=== PATIENT | female | born 1945 | race Caucasian/White ===

== ENCOUNTER 2018-09-02 17:26 | Inpatient (IN) | payer OTHER, MEDICARE ==
--- NOTE | 2018-09-02 17:35 | PDOC ---
Rapid Medical Evaluation Chief Complaint: Abnormal Lab Results (Outside) Time Seen by Provider: 09/02/18 17:30 Medical Evaluation: Allergies Allergy/AdvReac Type Severity Reaction Status Date / Time Penicillins Allergy Rash Verified 09/02/18 17:30 09/02/18 17:32 I have performed a brief in-person evaluation of this patient. The patient presents with a chief complaint of: advised by PCP Dr. Sood to come to ED due to elevated creatinine levels in office. Patient report not feeling well but denies any symptoms Pertinent physical exam findings: A&Ox 3 in NAD I have ordered the following: CBC, CMP The patient will proceed to the ED for further evaluation. Discharge Disposition - Diagnosis Abnormal laboratory test result - Discharge Dispostion Condition at time of disposition: Stable - Referrals - Patient Instructions - Post Discharge Activity
--- NOTE | 2018-09-02 18:10 | PDOC ---
History of Present Illness - General Chief Complaint: Abnormal Lab Results (Outside) Stated Complaint: LABS RESULT Time Seen by Provider: 09/02/18 17:30 - History of Present Illness Initial Comments: 73yo F with PMH of HTN, DVT, Afib on eliquis sent by her primary care physician for elevated creatinine (Cr=2). Patient states she was not feeling well this morning and decided to see her doctor. She takes HCTZ. Patient does not have acute complaints and cannot verbalize how she she feels unwell. She may feel weak. Also reporting dysuria. Endorses a normal appetite. No fevers, chills, chest pain, or shortness of breath. PCP: Dr. Sood Past History - Past Medical History Allergies/Adverse Reactions: Allergies Allergy/AdvReac Type Severity Reaction Status Date / Time Penicillins Allergy Rash Verified 09/02/18 17:30 Home Medications: Ambulatory Orders Hydrochlorothiazide [Hydrodiuril] 25 mg PO DAILY 06/30/11 Metoprolol Succinate [Toprol XL -] 50 mg PO BID 07/07/11 Acetaminophen [Tylenol .Regular Strength -] 325 mg PO Q4H PRN #0 tablet Atorvastatin Ca [Lipitor] 10 mg PO HS tablet 08/25/14 Digoxin [Lanoxin -] 0.125 mg PO DAILY tablet 08/25/14 Quinapril HCl [Accupril -] 20 mg PO BID tablet 08/25/14 Apixaban [Eliquis] 5 mg PO BID 01/23/17 Amlodipine Besylate [Norvasc -] 5 mg PO HS 09/02/18 Potassium Chloride [K-Dur -] 20 meq PO BID 09/02/18 Sertraline HCl [Zoloft -] 150 mg PO DAILY 09/02/18 Anemia: No Asthma: No Cancer: Yes Cardiac Disorders: Yes (MURMUR, ATRIAL FIBRILLATION) 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) COPD: No CHF: No Dementia: No Diabetes: No GI Disorders: No Disorders: No HTN: Yes Hypercholesterolemia: Yes Liver Disease: No Seizures: No Thyroid Disease: No - Surgical History Abdominal Surgery: Yes (hernia) Appendectomy: No Cardiac Surgery: No Cholecystectomy: No Lung Surgery: No Neurologic Surgery: No Orthopedic Surgery: No - Suicide/Smoking/Psychosocial Hx Smoking Status: No Smoking History: Never smoked Number of Cigarettes Smoked Daily: 0 Hx Alcohol Use: No Drug/Substance Use Hx: No Substance Use Type: None Review of Systems - Review of Systems Comments:: Constitutional: no fever, no chills HEENT: no throat pain, no dysphagia Cardiovascular: no chest pain, no palpitations Respiratory: no cough, no shortness of breath Gastrointestinal: no abdominal pain, no nausea Genitourinary: no hematuria, no frequency Musculoskeletal: no myalgia, no arthralgia Skin: no rash, no itching Neurologic: no headache, no dizziness *Physical Exam - Vital Signs Last Vital Signs Temp Pulse Resp BP Pulse Ox 98.3 F 71 18 98/48 L 98 09/02/18 17:37 09/02/18 17:37 09/02/18 17:37 09/02/18 17:37 09/02/18 17:37 - Physical Exam Comments: General: Awake, alert, and fully oriented, in no acute distress Head: No signs of trauma Eyes: EOMI, sclera anicteric ENT: Moist mucus membranes Neck: Normal ROM, supple Lungs: Lungs clear, Normal breath sounds Cardio: Regular rhythm, S1 and S2 present Abdomen: Soft, nontender. No guarding, no rebound, no masses. No CVA tenderness. Extremities: Normal range of motion, Distal pulses present SKIN: Warm, Dry, normal turgor Neurologic: Cranial nerves II through XII grossly intact. Normal speech ED Treatment Course - LABORATORY CBC & Chemistry Diagram: 09/02/18 18:00 09/02/18 17:35 Medical Decision Making - Medical Decision Making 73yo F with PMH of HTN, DVT, Afib on eliquis sent by her primary care physician for elevated creatinine (Cr=2). Patient takes HCTZ Labs, EKG, CXR Dr Cardenas discussed case with Dr. Sood who accepted patient for admission for DIANE Baseline Cr is 0.8 09/02/18 19:20 EKG: rate 85, QTc 542, Afib with PVCs, RBBB 09/02/18 21:04 UA indicates UTI with 3+LE, 703 WBC, 95 bacteria Levaquin given CBC WBC 8.6 K/mm3 (4.0-10.0) 09/02/18 18:00 RBC 4.07 M/mm3 (3.60-5.2) 09/02/18 18:00 Hgb 11.7 GM/dL (10.7-15.3) 09/02/18 18:00 Hct 35.4 % (32.4-45.2) 09/02/18 18:00 MCV 86.9 fl (80-96) 09/02/18 18:00 MCH 28.6 pg (25.7-33.7) 09/02/18 18:00 MCHC 32.9 g/dl (32.0-36.0) 09/02/18 18:00 RDW 14.0 % (11.6-15.6) 09/02/18 18:00 Plt Count 212 K/MM3 (134-434) 09/02/18 18:00 MPV 7.8 fl (7.5-11.1) 09/02/18 18:00 Absolute Neuts (auto) 6.5 K/mm3 (1.5-8.0) 09/02/18 18:00 Neutrophils % 75.0 % (42.8-82.8) 09/02/18 18:00 Lymphocytes % 15.3 % (8-40) D 09/02/18 18:00 Monocytes % 6.7 % (3.8-10.2) 09/02/18 18:00 Eosinophils % 2.0 % (0-4.5) 09/02/18 18:00 Basophils % 1.0 % (0-2.0) 09/02/18 18:00 Nucleated RBC % 0 % (0-0) 09/02/18 18:00 No anemia or leukocytosis CMP Sodium 138 mmol/L (136-145) 09/02/18 17:35 Potassium 4.6 mmol/L (3.5-5.1) 09/02/18 17:35 Chloride 104 mmol/L (98-107) 09/02/18 17:35 Carbon Dioxide 26 mmol/L (21-32) 09/02/18 17:35 Anion Gap 8 MMOL/L (8-16) 09/02/18 17:35 BUN 38 mg/dL (7-18) H 09/02/18 17:35 Creatinine 1.6 mg/dL (0.55-1.3) H 09/02/18 17:35 Est GFR (CKD-EPI)AfAm 36.16 09/02/18 17:35 Est GFR (CKD-EPI)NonAf 31.20 09/02/18 17:35 Random Glucose 102 mg/dL (74-106) 09/02/18 17:35 Calcium 8.9 mg/dL (8.5-10.1) 09/02/18 17:35 Total Bilirubin 0.7 mg/dL (0.2-1) 09/02/18 17:35 AST 14 U/L (15-37) L 09/02/18 17:35 ALT 11 U/L (13-61) L 09/02/18 17:35 Alkaline Phosphatase 133 U/L (45-117) H 09/02/18 17:35 Total Protein 7.6 g/dl (6.4-8.2) 09/02/18 17:35 Albumin 3.0 g/dl (3.4-5.0) L 09/02/18 17:35 Cr elevated 1.6 CXR without acute pathology, my impression Pending renal US report *DC/Admit/Observation/Transfer Diagnosis at time of Disposition: Abnormal laboratory test result, DIANE (acute kidney injury) - Discharge Dispostion Condition at time of disposition: Guarded Decision to Admit order: Yes - Referrals - Patient Instructions - Post Discharge Activity
[2018-09-02] MEDS ORDERED: SODIUM CHLORIDE 1,000 ML IV STA (18:36)
[2018-09-02 18:54] LABS: HEMATOCRIT 35.4 % (32.4-45.2); HEMOGLOBIN 11.7 GM/dL (10.7-15.3); LYMPH % 15.3 % (8-40); MCH 28.6 pg (25.7-33.7); MCHC 32.9 g/dl (32.0-36.0); MEAN CELL VOLUME 86.9 fl (80-96); MEAN PLT VOLUME 7.8 fl (7.5-11.1); MONO % 6.7 % (3.8-10.2); PLATELET COUNT 212 K/MM3 (134-434); RBC 4.07 M/mm3 (3.60-5.2); WHITE BLOOD COUNT 8.6 K/mm3 (4.0-10.0)
--- NOTE | 2018-09-02 19:18 | PDOC ---
Attending Attestation - Resident Resident Name: Keisha Weiss - ED Attending Attestation I have performed the following: I have examined & evaluated the patient, The case was reviewed & discussed with the resident, I agree w/resident's findings & plan, Exceptions are as noted - HPI HPI: 09/02/18 19:10 73yo female sent from Dr. Sood office for eval of abnl labs performed as an outpt. Pt states she takes quinipril and hctz as part of her BP management and outpt labs show elevated cr. Pt baseline is 1, today 1.9. Pt states lightheaded when she stands for a brief moment. Pt denies cp/sob. No abd pain. No n/v/d. Pt c/o dysuria for the last few days. No hematuria. - Physicial Exam PE: 09/02/18 19:15 Gen: aaox3, nad heart: +s1s2 reg lungs: cta b/l abd: soft, nt/nd +bs, no suprapubic ttp ext: no c/c/e neuro: no focal neuro findings, aaox3 - Medical Decision Making 09/02/18 19:18 a/p: 73yo female sent by Dr. Sood for eval of melina -pt on hctz and quinipril - poss dehyration/med reaction -will repeat labs, renal ultrasound -pt also with dysuria - will send ua/ucx -pt arrives with low bp, will start ivf hydraiton, suspect bp low from meds -will start gentle ivf hydration -will place on Dr. Sood service -pt understands she was sent to the ED for admission 09/02/18 19:[address] Sood who accepts pt to service 09/02/18 20:17 cr 1.6 labs reviewed Heart Score/ECG Review - ECG Intrepretation Comment:: 09/02/18 20:16 afib at 85 with pvc, rbbb, no acute st/t wave findings
[2018-09-02 19:26] LABS: BILIRUBIN,TOTAL 0.7 mg/dL (0.2-1); CALCIUM 8.9 mg/dL (8.5-10.1); CREATININE 1.6 mg/dL (0.55-1.3); POTASSIUM 4.6 mmol/L (3.5-5.1); TOT PROT 7.6 g/dl (6.4-8.2)
--- NOTE | 2018-09-02 19:52 | HP ---
Admitting History and Physical - Primary Care Physician PCP: Yee Sood S - Admission Chief Complaint: ARF History of Present Illness: 73yo F with PMH of HTN, PE/ DVT, Afib on eliquis sent in for elevated creatinine (Cr=2 in office from baseline <1). Patient states she was not feeling well for few days and and she made charissa with me in office for 09/03 but went to have labs prior to visit. She takes HCTZ for a long time and was stable in the past. Patient does not have acute complaints and gives vague complaints about how she feels unwell. She feels weak. Also reporting some dysuria. Endorses a normal appetite. No fevers, chills, chest pain, or shortness of breath. accompanied by in ER History Source: Patient, Family Member Limitations to Obtaining History: No Limitations - Past Medical History Cardiovascular: Yes: AFIB, CHF, HTN - Past Surgical History Past Surgical History: Yes: Hernia Repair - Smoking History Smoking history: Never smoked Aproximately how many cigarettes per day: 0 - Alcohol/Substance Use Hx Alcohol Use: No History of Substance Use: reports: None - Social History Usual Living Arrangement: Yes: With Spouse ADL: Independent History of Recent Travel: No Home Medications - Allergies Allergies/Adverse Reactions: Allergies Allergy/AdvReac Type Severity Reaction Status Date / Time Penicillins Allergy Rash Verified 09/02/18 17:30 - Home Medications Home Medications: Ambulatory Orders Hydrochlorothiazide [Hydrodiuril] 25 mg PO DAILY 06/30/11 Metoprolol Succinate [Toprol XL -] 50 mg PO BID 07/07/11 Acetaminophen [Tylenol .Regular Strength -] 325 mg PO Q4H PRN #0 tablet Atorvastatin Ca [Lipitor] 10 mg PO HS tablet 08/25/14 Digoxin [Lanoxin -] 0.125 mg PO DAILY tablet 08/25/14 Quinapril HCl [Accupril -] 20 mg PO BID tablet 08/25/14 Apixaban [Eliquis] 5 mg PO BID 01/23/17 Amlodipine Besylate [Norvasc -] 5 mg PO HS 09/02/18 Potassium Chloride [K-Dur -] 20 meq PO BID 09/02/18 Sertraline HCl [Zoloft -] 150 mg PO DAILY 09/02/18 Family Disease History - Family Disease History Family History: Unremarkable Review of Systems - Review of Systems Constitutional: reports: Loss of Appetite, Weakness (general). denies: Chills, Fever, Lethargy Eyes: denies: Blurred Vision, Double Vision HENT: denies: Difficult Swallowing, Ear Discharge, Ear Pain Neck: denies: Stiffness, Tenderness Cardiovascular: denies: Chest Pain, Shortness of Breath Respiratory: denies: Cough, SOB Gastrointestinal: denies: Abdominal Pain, Constipation, Dysphagia, Vomiting Genitourinary: reports: Dysuria (frequency), Frequency. denies: Flank Pain, Hematuria Musculoskeletal: denies: Back Pain, Muscle Pain Integumentary: denies: Eczema, Erythema, Rash, Wound Neurological: reports: Unsteady Gait, Weakness (general). denies: Change in LOC , Change in Speech, Confusion, Dizziness, Headache, Seizure, Syncope Endocrine: denies: Unexplained Weight Gain, Unexplained Weight Loss Hematology/Lymphatic: denies: Easily Bruised, Excessive Bleeding Psychiatric: denies: Altered Sleep Pattern, Anxiety, Depression Physical Examination Vital Signs: Vital Signs Temperature 98.3 F 09/02/18 17:37 Pulse Rate 71 09/02/18 17:37 Respiratory Rate 18 09/02/18 17:37 Blood Pressure 98/48 L 09/02/18 17:37 O2 Sat by Pulse Oximetry (%) 98 09/02/18 17:37 Constitutional: Yes: No Distress, Calm Eyes: Yes: Conjunctiva Clear HENT: Yes: Atraumatic Neck: Yes: Supple Cardiovascular: No: Regular Rate and Rhythm Respiratory: Yes: CTA Bilaterally Gastrointestinal: Yes: Soft. No: Tenderness Renal/: No: CVA Tenderness - Left, CVA Tenderness - Right, Hematuria Musculoskeletal: No: Joint Stiffness, Joint Swelling Extremities: No: Cold, Cool, Cyanosis Edema: No Integumentary: Yes: Venous Stasis Changes. No: Rash Neurological: Yes: WNL, Alert, Oriented ...Motor Strength: WNL Psychiatric: Yes: WNL, Alert, Oriented. No: Agitated, Suicidal Ideation Labs: CBC, BMP 09/02/18 18:00 09/02/18 17:35 Imaging - Results Chest X-ray: Report Reviewed Other: Report Reviewed Assessment/Plan 73yo F with PMH of HTN, PE DVT, Afib on eliquis sent in for elevated creatinine (Cr=2 in office from baseline <1). hold ACEI, HCT; decrease eliquis dose adjusted to renbal fct for now renal pelvic US; UA UCx cardiology and renal eval; f/u labs falls pfx d.w pt do not get OOB alone d/w pt and staff d/w pt's at bedside
[2018-09-02] MEDS ORDERED: ACETAMINOPHEN 325 MG TABLET (FP) PO PRN (19:55)
[2018-09-02 20:11] LABS: EPI CELLS 1.9 /HPF (0-5/HPF); HYALINE CASTS 4 /lpf (0-8); URINE APPEARANCE CLOUDY; URINE BILIRUBIN NEGATIVE (NEGATIVE); URINE COLOR YELLOW; URINE GLUCOSE (UA) NEGATIVE (NEGATIVE); URINE KETONE NEGATIVE (NEGATIVE); URINE LEUK ESTERASE 3+ (NEGATIVE); URINE NITRITE NEGATIVE (NEGATIVE); URINE PROTEIN 1+ (NEGATIVE); URINE UROBILINOGEN 0.2 mg/dL (0.2-1.0); URINE WBC 703 /hpf (0-5)
[2018-09-02 20:33] LABS: INR 1.69 (0.83-1.09); PROTHROMBIN TIME (PATIENT) 20.1 SEC (9.7-13.0)
[2018-09-02 20:51] LABS: URINE RBC 53.2 /hpf (0-4); YEAST FEW (NEGATIVE)
[2018-09-02] MEDS ORDERED: amLODIPine BESYLATE 5 MG TABLET (FP) PO SCH (22:00)
[2018-09-02] MEDS ORDERED: APIXABAN 5 MG TABLET PO ONE (22:12)
[2018-09-02] MEDS ORDERED: amLODIPine BESYLATE 5 MG TABLET (FP) ONE (22:13)
[2018-09-02] MEDS ORDERED: ATORVASTATIN CA 10 MG TABLET (FP) ONE (22:13)
[2018-09-02] MEDS: APIXABAN 2.5 MG TABLET PO SCH (22:21)
[2018-09-02] MEDS: ATORVASTATIN CA 10 MG TABLET (FP) PO SCH (22:21)
[2018-09-03 04:55] VITALS: BMI 30.7
[2018-09-03 08:12] LABS: CALCIUM 8.9 mg/dL (8.5-10.1); CREATININE 1.3 mg/dL (0.55-1.3); POTASSIUM 3.4 mmol/L (3.5-5.1)
[2018-09-03] MEDS ORDERED: POTASSIUM CHLORIDE TABS 10 MEQ TABLET.ER (FP) PO ONE (08:44)
--- NOTE | 2018-09-03 09:14 | CON.CARD ---
Consult Consult Specialty:: Cardiology Referred by:: Yee Sood MD Reason for Consultation:: Afib on eliquis - History of Present Illness Chief Complaint: Weakness History of Present Illness: 73 yo WF h/o permanenet afib on Eliquis, HTN, DVT/pulmonary embolism, mitral valve regurgitation, gastritis s/p ventral hernia repair last seen in office presents with weakness and dysuria, found to have DIANE, chronically on Accuretic, renal US shows no hydronephrosis. Patient denies chest pain, dyspnea , palpitations, near or true syncope, orthopnea, PND or LE edema. - History Source History Provided By: Patient Limitations to Obtaining History: No Limitations - Past Medical History Cardio/Vascular: Yes: AFIB, CHF, HTN - Past Surgical History Past Surgical History: Yes: Hernia Repair - Alcohol/Substance Use Hx Alcohol Use: No History of Substance Use: reports: None - Smoking History Smoking history: Never smoked Aproximately how many cigarettes per day: 0 - Social History ADL: Independent History of Recent Travel: No Home Medications - Allergies Allergies/Adverse Reactions: Allergies Allergy/AdvReac Type Severity Reaction Status Date / Time Penicillins Allergy Rash Verified 09/02/18 17:30 - Home Medications Home Medications: Ambulatory Orders Hydrochlorothiazide [Hydrodiuril] 25 mg PO DAILY 06/30/11 Metoprolol Succinate [Toprol XL -] 50 mg PO BID 07/07/11 Acetaminophen [Tylenol .Regular Strength -] 325 mg PO Q4H PRN #0 tablet Atorvastatin Ca [Lipitor] 10 mg PO HS tablet 08/25/14 Digoxin [Lanoxin -] 0.125 mg PO DAILY tablet 08/25/14 Quinapril HCl [Accupril -] 20 mg PO BID tablet 08/25/14 Apixaban [Eliquis] 5 mg PO BID 01/23/17 Amlodipine Besylate [Norvasc -] 5 mg PO HS 09/02/18 Potassium Chloride [K-Dur -] 20 meq PO BID 09/02/18 Sertraline HCl [Zoloft -] 150 mg PO DAILY 09/02/18 Review of Systems - Review of Systems Constitutional: reports: Lethargy, Weakness Vital Signs: Vital Signs Temperature 98.2 F 09/03/18 08:42 Pulse Rate 76 09/03/18 08:42 Respiratory Rate 20 09/03/18 08:42 Blood Pressure 101/53 L 09/03/18 08:42 O2 Sat by Pulse Oximetry (%) 96 09/03/18 05:58 Constitutional: Yes: No Distress, Calm, Thin Neck: Yes: Supple Respiratory: Yes: Regular, CTA Bilaterally Gastrointestinal: Yes: Normal Bowel Sounds, Soft Cardiovascular: Yes: Pulse Irregular JVD: No Carotid Bruit: No Heart Sounds: Yes: S1, S2 Murmur: Yes: Systolic Murmur, Grade 1 Edema: No - Other Data Labs, Other Data: CBC, BMP 09/02/18 18:00 09/03/18 06:35 INR, PTT INR 1.69 (0.83-1.09) H 09/02/18 20:04 Afib @ 85 RBBB similar to previous 06/29/2018 Ejection Fraction %: LVEF > or = 40 % Imaging - Results Chest X-ray: Report Reviewed (NAD) Ultrasound: Report Reviewed (Renal US: No hydro) Problem List - Problems (1) Atrial fibrillation Code(s): I48.91 - UNSPECIFIED ATRIAL FIBRILLATION Qualifiers: Atrial fibrillation type: permanent Qualified Code(s): I48.2 - Chronic atrial fibrillation (2) Right bundle branch block (RBBB) Code(s): I45.10 - UNSPECIFIED RIGHT BUNDLE-BRANCH BLOCK (3) Hypertensive cardiomyopathy Code(s): I11.9 - HYPERTENSIVE HEART DISEASE WITHOUT HEART FAILURE; I43 - CARDIOMYOPATHY IN DISEASES CLASSIFIED ELSEWHERE Qualifiers: Heart failure presence: without heart failure Qualified Code(s): I11.9 - Hypertensive heart disease without heart failure; I43 - Cardiomyopathy in diseases classified elsewhere (4) Hyperlipidemia Code(s): E78.5 - HYPERLIPIDEMIA, UNSPECIFIED Qualifiers: Hyperlipidemia type: pure hypercholesterolemia Qualified Code(s): E78.00 - Pure hypercholesterolemia, unspecified; E78.0 - Pure hypercholesterolemia (5) Chronic anticoagulation Code(s): Z79.01 - ALF (CURRENT) USE OF ANTICOAGULANTS (6) DIANE (acute kidney injury) Code(s): N17.9 - ACUTE KIDNEY FAILURE, UNSPECIFIED Assessment/Plan October 22, 2017 Echo: Normal LV size with mild LVH, normal LV fxn, severe LAE, normal atrial sizes, normal RV size with mild decreased RV fxn, mild MR, TR RVSP 40 mmHg, tr SD 1. DIANE likely pre-renal resolving 2. Permanent afib on Eliquis [id number] 3. Hyperlipidemia 4. HTN 5. H/o DVT/PE 6. Suspected UTI P:1. Hold HCTZ, IVF with following renal recovery, replete K 2. Empiric abx per C&S, f/u UA UCx 3. Continue Accupril 20 qd with caution, Lipitor 10 qd, increase Eliquis 5 bid, Lopressor 50 bid 4. Thank you for consultative opportunity
[2018-09-03] MEDS: APIXABAN 2.5 MG TABLET PO SCH (09:20)
[2018-09-03] MEDS: metoPROLOL SUCCINATE 25 MG TAB.SR.24H (FP) PO SCH ×2 (09:20→21:35)
[2018-09-03] MEDS: SERTRALINE HCL 50 MG TABLET (FP) PO SCH (09:20)
[2018-09-03] MEDS: POTASSIUM CHLORIDE TABS 20 MEQ TABLET.ER (FP) PO SCH (09:20)
[2018-09-03] MEDS ORDERED: POTASSIUM CHLORIDE 10 MEQ in SODIUM CHLORIDE 1,000 ML IVPB SCH ×2 (10:00→13:27)
[2018-09-03 10:03] LABS: EPI CELLS 0.5 /HPF (0-5/HPF); HYALINE CASTS 1 /lpf (0-8); URINE APPEARANCE CLOUDY; URINE BACTERIA 2.2 /hpf (NEGATIVE); URINE BILIRUBIN NEGATIVE (NEGATIVE); URINE COLOR YELLOW; URINE GLUCOSE (UA) NEGATIVE (NEGATIVE); URINE KETONE NEGATIVE (NEGATIVE); URINE LEUK ESTERASE 3+ (NEGATIVE); URINE NITRITE NEGATIVE (NEGATIVE); URINE PROTEIN TRACE (NEGATIVE); URINE UROBILINOGEN 0.2 mg/dL (0.2-1.0); URINE WBC 329 /hpf (0-5)
[2018-09-03] MEDS: QUINAPRIL HCL 20 MG TABLET (FP) PO SCH (10:59)
[2018-09-03 11:38] LABS: URINE RBC 82.1 /hpf (0-4); YEAST NOT PRESENT (NEGATIVE)
--- NOTE | 2018-09-03 11:47 | PN ---
Progress Note, Physician Chief Complaint: no new c/o; received low dose IVF; off HCT off ACEI creat better UA+ UCx pending - Current Medication List Current Medications: Active Medications Acetaminophen (Tylenol -) 325 mg PO Q4H PRN PRN Reason: PAIN Apixaban (Eliquis -) 5 mg PO BID [facility] Atorvastatin Calcium (Lipitor -) 10 mg PO HS [facility] Last Admin: 09/02/18 22:21 Dose: 10 mg Potassium Chloride 10 meq/ (Sodium Chloride) 1,005 mls @ 42 mls/hr IVPB Q24H [facility] Last Admin: 09/03/18 10:59 Dose: 42 mls/hr Metoprolol Succinate (Toprol Xl -) 25 mg PO BID [facility] Last Admin: 09/03/18 09:20 Dose: 25 mg Potassium Chloride (K-Dur -) 20 meq PO DAILY [facility] Last Admin: 09/03/18 09:20 Dose: 20 meq Quinapril HCl (Accupril -) 20 mg PO DAILY [facility] Last Admin: 09/03/18 10:59 Dose: 20 mg Sertraline HCl (Zoloft -) 150 mg PO DAILY [facility] Last Admin: 09/03/18 09:20 Dose: 150 mg - Objective Vital Signs: Vital Signs Temperature 98.2 F 09/03/18 08:42 Pulse Rate 76 09/03/18 08:42 Respiratory Rate 20 09/03/18 08:42 Blood Pressure 101/53 L 09/03/18 08:42 O2 Sat by Pulse Oximetry (%) 95 09/03/18 09:00 Constitutional: Yes: No Distress, Calm Eyes: Yes: Conjunctiva Clear HENT: Yes: Atraumatic Neck: Yes: Supple Cardiovascular: No: Regular Rate and Rhythm Respiratory: Yes: CTA Bilaterally Gastrointestinal: Yes: Soft. No: Tenderness Genitourinary: No: CVA Tenderness - Left, CVA Tenderness - Right Musculoskeletal: No: Joint Stiffness, Joint Swelling Extremities: No: Cold, Cool, Cyanosis Edema: No Integumentary: Yes: Venous Stasis Changes. No: Rash Neurological: Yes: WNL, Alert, Oriented ...Motor Strength: WNL Psychiatric: Yes: WNL, Alert, Oriented. No: Agitated, Suicidal Ideation Labs: CBC, BMP 09/02/18 18:00 09/03/18 06:35 INR, PTT INR 1.69 (0.83-1.09) H 09/02/18 20:04 - ....Imaging Other: Report Reviewed Assessment/Plan 73yo F with PMH of HTN, PE DVT, Afib on eliquis admitted with ARF and UTI hold ACEI, HCT; adjust eliquis dose to rebal fct renal pelvic US; UA UCx pending; po levaquin per renal fct cardiology and renal f/u; f/u labs falls pfx d.w pt do not get OOB alone d/w pt and staff will call pt's
--- NOTE | 2018-09-03 13:12 | CONSULT ---
Consult - text type - Consultation Consultation Note: Renal Consult for DIANE This is a 73 year old woman with hx of Hypertension, DVT, Afib on A/C who was sent to the ED by PMD with outpatient labs that showed worsening renal function. Pt seen and examined at the bedside. No acute complaints. Getting IVF. Denies any pain, sob, cp, abd pain, fever, chills. Making urine. Reports she had some dysuria previously. Has been on HCTZ for a long time. No flank pain , skin rash, NSAID use or contrast exposure. No leg swelling but had been swollen in the past. PMhx: as above Allergies: NKDA Family Hx: NC Social hx: No T/A/D ROS: as per HPI, all othe pertinent ros negative Home Medications Medication Instructions Recorded Hydrochlorothiazide [Hydrodiuril] 25 mg PO DAILY 06/30/11 Metoprolol Succinate [Toprol XL -] 50 mg PO BID 07/07/11 Acetaminophen [Tylenol .Regular 325 mg PO Q4H PRN #0 tablet 08/25/14 Strength -] Atorvastatin Ca [Lipitor] 10 mg PO HS tablet 08/25/14 Digoxin [Lanoxin -] 0.125 mg PO DAILY tablet 08/25/14 Quinapril HCl [Accupril -] 20 mg PO BID tablet 08/25/14 Apixaban [Eliquis] 5 mg PO BID 01/23/17 Amlodipine Besylate [Norvasc -] 5 mg PO HS 09/02/18 Potassium Chloride [K-Dur -] 20 meq PO BID 09/02/18 Sertraline HCl [Zoloft -] 150 mg PO DAILY 09/02/18 Vital Signs Temperature 98.2 F 09/03/18 08:42 Pulse Rate 76 09/03/18 08:42 Respiratory Rate 20 09/03/18 08:42 Blood Pressure 101/53 L 09/03/18 08:42 O2 Sat by Pulse Oximetry (%) 95 09/03/18 09:00 Intake & Output 08/31/18 09/01/18 09/02/18 09/03/18 23:59 23:59 23:59 23:59 Intake Total 100 Balance 100 Weight 63.503 kg 71.486 kg NAD awake and alert neck supple, no JVD irregular, no M/R CTA, no rales or wheeze soft NT/ND no LE edema, clubbing or edema no focal neurologic deficits CBC, BMP 09/02/18 18:00 09/03/18 06:35 Laboratory Tests 08/27/18 09/02/18 09/03/18 17:28 17:35 06:35 Creatinine 1.9 H 1.6 H 1.3 Laboratory Tests 09/03/18 07:05 Ur Specific [place] 1.009 L Urine Protein Trace Urine Blood 3+ H Ur Leukocyte Esterase 3+ H Urine WBC (Auto) 329 Urine RBC (Auto) 82.1 Urine Bacteria (Auto) 2.2 Renal US - 9.9/9.8, no hydronephross, stones or cysts. Fibroid uterus. CXR- no infiltrate or effusion Current Medications Acetaminophen (Tylenol -) 325 mg PO Q4H PRN PRN Reason: PAIN Apixaban (Eliquis -) 5 mg PO BID [facility] Atorvastatin Calcium (Lipitor -) 10 mg PO HS [facility] Last Admin: 09/02/18 22:21 Dose: 10 mg Potassium Chloride 10 meq/ (Sodium Chloride) 1,005 mls @ 42 mls/hr IVPB Q24H [facility] Last Admin: 09/03/18 10:59 Dose: 42 mls/hr Levofloxacin (Levaquin -) 250 mg PO DAILY [facility] Last Admin: 09/03/18 13:01 Dose: 250 mg Metoprolol Succinate (Toprol Xl -) 25 mg PO BID [facility] Last Admin: 09/03/18 09:20 Dose: 25 mg Potassium Chloride (K-Dur -) 20 meq PO DAILY [facility] Last Admin: 09/03/18 09:20 Dose: 20 meq Quinapril HCl (Accupril -) 20 mg PO DAILY [facility] Last Admin: 09/03/18 10:59 Dose: 20 mg Sertraline HCl (Zoloft -) 150 mg PO DAILY [facility] Last Admin: 09/03/18 09:20 Dose: 150 mg 73 year old woman with hx of Hypertension, DVT, Afib on A/C who was sent to the ED by PMD with outpatient labs that showed worsening renal function. #DIANE now resolving likely due to volume depletion in setting of diuretic #Hematuria #Hypokalemia #Hypertension #Suspected cystitis Renal function improving with IVF. Renal US w/o any structural abnormalities. UA showed hematuria and pyuria likely related to cystitis. Would continue moderate IVF for now holding HCTZ while being hydrated but can resume as outpatient if renal function returns to baseline and remains stable. Continue ACEi Supplement KCL f/u urine cultures and adjust Abx as needed Thank you
[2018-09-03] MEDS ORDERED: SODIUM CHLORIDE 0.9%/KCL 20 MEQ/1,000 ML INFUS.BAG IV SCH (13:30)
--- NOTE | 2018-09-03 15:17 | EKG ---
Test Reason : Blood Pressure : / mmHG Vent. Rate : 085 BPM Atrial Rate : 107 BPM P-R Int : 000 ms QRS Dur : 162 ms QT Int : 456 ms P-R-T Axes : 000 061 -44 degrees QTc Int : 542 ms ATRIAL FIBRILLATION WITH PREMATURE VENTRICULAR OR ABERRANTLY CONDUCTED COMPLEXES RIGHT BUNDLE BRANCH BLOCK T WAVE ABNORMALITY, CONSIDER INFERIOR ISCHEMIA ABNORMAL ECG WHEN COMPARED WITH ECG OF 23-AUG-2014 05:40, QT HAS LENGTHENED Confirmed by MARCUS PEREZ MD ([id number]) on 09/03/2018 3:17:11 PM Referred By: Confirmed By:MARCUS PEREZ MD
[2018-09-03] MEDS: ATORVASTATIN CA 10 MG TABLET (FP) PO SCH (21:35)
[2018-09-03] MEDS: APIXABAN 5 MG TABLET PO SCH (21:35)
[2018-09-04 07:42] LABS: BASO % 0.8 % (0-2.0); EOS % 2.3 % (0-4.5); HEMATOCRIT 31.7 % (32.4-45.2); HEMOGLOBIN 10.6 GM/dL (10.7-15.3); LYMPH % 20.4 % (8-40); MCH 28.6 pg (25.7-33.7); MCHC 33.4 g/dl (32.0-36.0); MEAN CELL VOLUME 85.8 fl (80-96); MEAN PLT VOLUME 7.8 fl (7.5-11.1); MONO % 6.7 % (3.8-10.2); NEUT % 69.8 % (42.8-82.8); PLATELET COUNT 175 K/MM3 (134-434); RBC 3.69 M/mm3 (3.60-5.2); RDW 13.8 % (11.6-15.6); WHITE BLOOD COUNT 5.8 K/mm3 (4.0-10.0)
[2018-09-04 08:27] LABS: ALBUMIN 2.6 g/dl (3.4-5.0); BILIRUBIN,TOTAL 0.9 mg/dL (0.2-1); CALCIUM 8.8 mg/dL (8.5-10.1); CREATININE 1.2 mg/dL (0.55-1.3); MAGNESIUM 1.9 mg/dL (1.8-2.4); PHOSPHOROUS 2.8 mg/dL (2.5-4.9); POTASSIUM 3.4 mmol/L (3.5-5.1); TOT PROT 6.4 g/dl (6.4-8.2)
[2018-09-04] MEDS: POTASSIUM CHLORIDE TABS 20 MEQ TABLET.ER (FP) PO SCH ×2 (10:11→22:14)
[2018-09-04] MEDS: SERTRALINE HCL 50 MG TABLET (FP) PO SCH (10:11)
[2018-09-04] MEDS: metoPROLOL SUCCINATE 25 MG TAB.SR.24H (FP) PO SCH ×2 (10:12→22:14)
[2018-09-04] MEDS: APIXABAN 5 MG TABLET PO SCH ×2 (10:12→22:15)
[2018-09-04] MEDS: QUINAPRIL HCL 20 MG TABLET (FP) PO SCH (10:14)
--- NOTE | 2018-09-04 10:38 | PN ---
Progress Note (short form) - Note Progress Note: RENAL coverage for Dr Baker Pt is awake and alert denies complaints Last Vital Signs Temp Pulse Resp BP Pulse Ox 98.1 F 97 H 20 127/87 96 09/04/18 06:00 09/04/18 06:00 09/03/18 23:45 09/04/18 06:00 09/03/18 22:00 Lungs clear cvs s1s2 rr abd soft ext venous insufficiency changes neuro a+o CBC, BMP 09/04/18 06:05 09/04/18 06:05 Current Medications Generic Name Dose Route Start Last Admin Trade Name Freq PRN Reason Stop Dose Admin Acetaminophen 325 mg 09/02/18 19:55 Tylenol - PO Q4H PRN PAIN Apixaban 5 mg 09/03/18 11:25 09/04/18 10:12 Eliquis - PO 5 mg BID CHANG Administration Atorvastatin Calcium 10 mg 09/02/18 22:00 09/03/18 21:35 Lipitor - PO 10 mg HS CHANG Administration Potassium Chloride/Sodium Chloride 20 meq in 1,000 mls @ 41.667 mls/hr 13:30 09/03/18 13:52 Ns+20 Meq Kcl - IV 09/04/18 13:29 41.667 mls/hr ASDIR CHANG Administration Levofloxacin 250 mg 09/03/18 12:00 09/04/18 10:12 Levaquin - PO 250 mg DAILY CHANG Administration Metoprolol Succinate 25 mg 09/03/18 10:00 09/04/18 10:12 Toprol Xl - PO 25 mg BID CHANG Administration Potassium Chloride 20 meq 09/03/18 10:00 09/04/18 10:11 K-Dur - PO 20 meq DAILY CHANG Administration Quinapril HCl 20 mg 09/03/18 10:00 09/04/18 10:14 Accupril - PO 20 mg DAILY CHANG Administration Sertraline HCl 150 mg 09/03/18 10:00 09/04/18 10:11 Zoloft - PO 150 mg DAILY CHANG Administration IMPRESSION 73 year old woman with hx of Hypertension, DVT, Afib on A/C who was sent to the ED by PMD with outpatient labs that showed worsening renal function. #DIANE now resolving likely due to volume depletion in setting of diuretic #Hematuria likely from cystitis #Hypokalemia #Hypertension #anemia PLAN Renal function improving with IVF. Renal US w/o any structural abnormalities. UA showed hematuria and pyuria likely related to cystitis. Would continue IVF for now holding HCTZ while being hydrated Continue ACEi would repeat ua after treatment of UTI and if still hematuric would ask urology to evaluate Supplement KCL f/u urine cultures and adjust Abx as needed anemia work up MV
--- NOTE | 2018-09-04 11:06 | PN ---
Progress Note, Physician Chief Complaint: in bed no new c/o; Staph aureus in UCx; will ask ID input - Current Medication List Current Medications: Active Medications Acetaminophen (Tylenol -) 325 mg PO Q4H PRN PRN Reason: PAIN Apixaban (Eliquis -) 5 mg PO BID [facility] Last Admin: 09/04/18 10:12 Dose: 5 mg Atorvastatin Calcium (Lipitor -) 10 mg PO HS [facility] Last Admin: 09/03/18 21:35 Dose: 10 mg Potassium Chloride/Sodium Chloride (Ns+20 Meq Kcl -) 20 meq in 1,000 mls @ 41.667 mls/hr IV ASDIR [facility] Stop: 09/04/18 13:29 Last Admin: 09/03/18 13:52 Dose: 41.667 mls/hr Levofloxacin (Levaquin -) 250 mg PO DAILY [facility] Last Admin: 09/04/18 10:12 Dose: 250 mg Metoprolol Succinate (Toprol Xl -) 25 mg PO BID [facility] Last Admin: 09/04/18 10:12 Dose: 25 mg Potassium Chloride (K-Dur -) 20 meq PO DAILY [facility] Last Admin: 09/04/18 10:11 Dose: 20 meq Quinapril HCl (Accupril -) 20 mg PO DAILY [facility] Last Admin: 09/04/18 10:14 Dose: 20 mg Sertraline HCl (Zoloft -) 150 mg PO DAILY [facility] Last Admin: 09/04/18 10:11 Dose: 150 mg - Objective Vital Signs: Vital Signs Temperature 98.1 F 09/04/18 06:00 Pulse Rate 97 H 09/04/18 06:00 Respiratory Rate 20 09/03/18 23:45 Blood Pressure 127/87 09/04/18 06:00 O2 Sat by Pulse Oximetry (%) 96 09/03/18 22:00 Constitutional: Yes: No Distress, Calm Eyes: Yes: Conjunctiva Clear HENT: Yes: Atraumatic Neck: Yes: Supple Cardiovascular: No: Regular Rate and Rhythm Respiratory: Yes: CTA Bilaterally Gastrointestinal: Yes: Soft. No: Tenderness Genitourinary: No: CVA Tenderness - Left, CVA Tenderness - Right Musculoskeletal: No: Joint Stiffness, Joint Swelling Extremities: No: Cold, Cool, Cyanosis Edema: No Integumentary: No: Rash, Venous Stasis Changes Neurological: Yes: WNL, Alert, Oriented ...Motor Strength: WNL Psychiatric: Yes: WNL, Alert, Oriented. No: Agitated, Suicidal Ideation Labs: CBC, BMP 09/04/18 06:05 09/04/18 06:05 INR, PTT INR 1.69 (0.83-1.09) H 09/02/18 20:04 - ....Imaging Other: Report Reviewed Assessment/Plan 73yo F with PMH of HTN, PE DVT, Afib on eliquis admitted with ARF and UTI / staph aureus on UCx eliquis dose back to 5 mg po bid; renal fct improved; renal pelvic US negative Iv vanco per ID; check blood cx cardiology and renal f/u; f/u labs falls pfx d.w pt do not get OOB alone d/w pt and staff d/w pt's
--- NOTE | 2018-09-04 13:47 | CON.ID ---
Consult Consult Specialty:: infectious disease Referred by:: dr campbell Reason for Consultation:: UTI - History of Present Illness Chief Complaint: admitted for elevated creatinine History of Present Illness: 73 yo female lives at home with her , ambulates with cane or wheelchair due to bilaerl leg pain/calluses admitted for elevated cretinine also notes some dysuria no fevers no suprapubic pain no back pain erratic eater at best per noted to have pyuria and started on levaquin now urine culture with coag positive staph! started on levaquin in Ed, now day #3 - History Source History Provided By: Patient, Family Member Limitations to Obtaining History: Poor Historian - Past Medical History Cardio/Vascular: Yes: AFIB, CHF, HTN Pulmonary: Yes: Pulmonary Embolus (and DVT in the past) - Past Surgical History Past Surgical History: Yes: Hernia Repair - Alcohol/Substance Use Hx Alcohol Use: No History of Substance Use: reports: None - Smoking History Smoking history: Never smoked Aproximately how many cigarettes per day: 0 - Social History Usual Living Arrangement: With Spouse ADL: Independent Place of : [facility] History of Recent Travel: No Home Medications - Allergies Allergies/Adverse Reactions: Allergies Allergy/AdvReac Type Severity Reaction Status Date / Time Penicillins Allergy Rash Verified 09/02/18 17:30 - Home Medications Home Medications: Ambulatory Orders Hydrochlorothiazide [Hydrodiuril] 25 mg PO DAILY 06/30/11 Metoprolol Succinate [Toprol XL -] 50 mg PO BID 07/07/11 Acetaminophen [Tylenol .Regular Strength -] 325 mg PO Q4H PRN #0 tablet Atorvastatin Ca [Lipitor] 10 mg PO HS tablet 08/25/14 Digoxin [Lanoxin -] 0.125 mg PO DAILY tablet 08/25/14 Quinapril HCl [Accupril -] 20 mg PO BID tablet 08/25/14 Apixaban [Eliquis] 5 mg PO BID 01/23/17 Amlodipine Besylate [Norvasc -] 5 mg PO HS 09/02/18 Potassium Chloride [K-Dur -] 20 meq PO BID 09/02/18 Sertraline HCl [Zoloft -] 150 mg PO DAILY 09/02/18 Family Disease History - Family Disease History Family History: Denies Review of Systems - Review of Systems Constitutional: denies: Chills, Fever Eyes: reports: No Symptoms HENT: reports: No Symptoms Neck: reports: No Symptoms Cardiovascular: reports: No Symptoms Respiratory: reports: No Symptoms Gastrointestinal: reports: No Symptoms Genitourinary: reports: Burning. denies: Flank Pain Physical Exam Vital Signs: Vital Signs Temperature 98.9 F 09/04/18 10:00 Pulse Rate 96 H 09/04/18 10:00 Respiratory Rate 20 09/04/18 10:00 Blood Pressure 114/79 09/04/18 10:00 O2 Sat by Pulse Oximetry (%) 97 09/04/18 09:00 Constitutional: Yes: No Distress, Calm Eyes: Yes: Conjunctiva Clear HENT: Yes: Atraumatic, Normocephalic Neck: Yes: Supple Cardiovascular: Yes: Regular Rate and Rhythm Respiratory: Yes: CTA Bilaterally Gastrointestinal: Yes: Normal Bowel Sounds, Soft. No: Tenderness, Epigastrium ...Rectal Exam: Yes: Deferred Renal/: No: Bladder Distention, CVA Tenderness - Left, CVA Tenderness - Right , Ashraf Present Extremities: Yes: WNL, Other (same calluses on her feet, bilateral venous stsis changes) Labs: CBC, BMP 09/04/18 06:05 09/04/18 06:05 Microbiology 09/03/18 07:05 Urine - Urine Clean Catch Urine Culture - Final NO GROWTH OBTAINED 09/02/18 19:53 Urine - Urine Clean Catch Urine Culture - Preliminary Staphylococcus Latex Coag Pos Imaging - Results X-ray: Report Reviewed, Image Reviewed Ultrasound: Report Reviewed Problem List - Problems (1) DIANE (acute kidney injury) Code(s): N17.9 - ACUTE KIDNEY FAILURE, UNSPECIFIED (2) UTI (urinary tract infection) Code(s): N39.0 - URINARY TRACT INFECTION, SITE NOT SPECIFIED (3) Penicillin allergy Code(s): Z88.0 - ALLERGY STATUS TO PENICILLIN Assessment/Plan would get blood cultures vancomycin after blood cultures renal function improving further reccd in am after urine culture result is back
[2018-09-04] MEDS ORDERED: VANCOMYCIN 1 GRAM (PRE-DOCKED) 1,000 MG/250 ML BAG IVPB ONE (13:48)
--- NOTE | 2018-09-04 18:53 | PN ---
Progress Note, Physician History of Present Illness: Weakness and dysuria resolving. DIANE improving - Current Medication List Current Medications: Active Medications Acetaminophen (Tylenol -) 325 mg PO Q4H PRN PRN Reason: PAIN Apixaban (Eliquis -) 5 mg PO BID [facility] Last Admin: 09/04/18 10:12 Dose: 5 mg Atorvastatin Calcium (Lipitor -) 10 mg PO HS [facility] Last Admin: 09/03/18 21:35 Dose: 10 mg Metoprolol Succinate (Toprol Xl -) 25 mg PO BID [facility] Last Admin: 09/04/18 10:12 Dose: 25 mg Potassium Chloride (K-Dur -) 20 meq PO BID [facility] Quinapril HCl (Accupril -) 20 mg PO DAILY [facility] Last Admin: 09/04/18 10:14 Dose: 20 mg Sertraline HCl (Zoloft -) 150 mg PO DAILY [facility] Last Admin: 09/04/18 10:11 Dose: 150 mg - Objective Vital Signs: Vital Signs Temperature 98.4 F 09/04/18 15:26 Pulse Rate 89 09/04/18 15:26 Respiratory Rate 20 09/04/18 15:26 Blood Pressure 112/73 09/04/18 15:26 O2 Sat by Pulse Oximetry (%) 97 09/04/18 09:00 Constitutional: Yes: No Distress, Calm Neck: Yes: Supple Cardiovascular: Yes: Pulse Irregular Respiratory: Yes: Regular, Diminished Gastrointestinal: Yes: Normal Bowel Sounds, Soft Edema: No Labs: CBC, BMP 09/04/18 06:05 09/04/18 06:05 INR, PTT INR 1.69 (0.83-1.09) H 09/02/18 20:04 Problem List - Problems (1) Atrial fibrillation Code(s): I48.91 - UNSPECIFIED ATRIAL FIBRILLATION Qualifiers: Atrial fibrillation type: permanent Qualified Code(s): I48.2 - Chronic atrial fibrillation (2) Right bundle branch block (RBBB) Code(s): I45.10 - UNSPECIFIED RIGHT BUNDLE-BRANCH BLOCK (3) Hypertensive cardiomyopathy Code(s): I11.9 - HYPERTENSIVE HEART DISEASE WITHOUT HEART FAILURE; I43 - CARDIOMYOPATHY IN DISEASES CLASSIFIED ELSEWHERE Qualifiers: Heart failure presence: without heart failure Qualified Code(s): I11.9 - Hypertensive heart disease without heart failure; I43 - Cardiomyopathy in diseases classified elsewhere (4) Hyperlipidemia Code(s): E78.5 - HYPERLIPIDEMIA, UNSPECIFIED Qualifiers: Hyperlipidemia type: pure hypercholesterolemia Qualified Code(s): E78.00 - Pure hypercholesterolemia, unspecified; E78.0 - Pure hypercholesterolemia (5) Chronic anticoagulation Code(s): Z79.01 - HALF-WAY (CURRENT) USE OF ANTICOAGULANTS (6) DIANE (acute kidney injury) Code(s): N17.9 - ACUTE KIDNEY FAILURE, UNSPECIFIED Assessment/Plan October 22, 2017 Echo: Normal LV size with mild LVH, normal LV fxn, severe LAE, normal atrial sizes, normal RV size with mild decreased RV fxn, mild MR, TR RVSP 40 mmHg, tr [place] 1. DIANE likelydue to volume depletion in setting of diuretic resolving 2. Permanent afib on Eliquis [id number] 3. Hyperlipidemia 4. HTN 5. H/o DVT/PE 6. Staph UTI 7. Anemia P:1. Hold HCTZ, IVF with following renal recovery, replete K 2. Empiric abx per C&S, f/u UA UCx 3. Continue Accupril 20 qd, Lipitor 10 qd, Eliquis 5 bid, Lopressor 50 bid
[2018-09-04] MEDS: ATORVASTATIN CA 10 MG TABLET (FP) PO SCH (22:15)
[2018-09-04] MEDS ORDERED: LORazepam 1 MG TABLET PO ONE (23:45)
[2018-09-05 07:16] LABS: BASO % 0.9 % (0-2.0); HEMATOCRIT 33.2 % (32.4-45.2); HEMOGLOBIN 11.3 GM/dL (10.7-15.3); LYMPH % 17.4 % (8-40); MCH 28.8 pg (25.7-33.7); MEAN CELL VOLUME 84.7 fl (80-96); MEAN PLT VOLUME 7.7 fl (7.5-11.1); MONO % 6.7 % (3.8-10.2); PLATELET COUNT 194 K/MM3 (134-434); RBC 3.92 M/mm3 (3.60-5.2); WHITE BLOOD COUNT 6.3 K/mm3 (4.0-10.0)
[2018-09-05 07:49] LABS: ALBUMIN 2.8 g/dl (3.4-5.0); BILIRUBIN,TOTAL 0.8 mg/dL (0.2-1); CREATININE 1.1 mg/dL (0.55-1.3); POTASSIUM 3.2 mmol/L (3.5-5.1); TOT PROT 6.8 g/dl (6.4-8.2)
[2018-09-05] MEDS ORDERED: POTASSIUM CHLORIDE TABS 20 MEQ TABLET.ER (FP) PO ONE (08:47)
--- NOTE | 2018-09-05 08:49 | PN ---
Progress Note, Physician Chief Complaint: in bed sleepy but arousable; was agitated last night and received 1 mg po ativan ; no new c/o consults appreciated and d/w pt and pt's - Current Medication List Current Medications: Active Medications Acetaminophen (Tylenol -) 325 mg PO Q4H PRN PRN Reason: PAIN Apixaban (Eliquis -) 5 mg PO BID [facility] Last Admin: 09/04/18 22:15 Dose: 5 mg Atorvastatin Calcium (Lipitor -) 10 mg PO HS [facility] Last Admin: 09/04/18 22:15 Dose: 10 mg Metoprolol Succinate (Toprol Xl -) 25 mg PO BID [facility] Last Admin: 09/04/18 22:14 Dose: 25 mg Potassium Chloride (K-Dur -) 20 meq PO BID [facility] Last Admin: 09/04/18 22:14 Dose: 20 meq Quinapril HCl (Accupril -) 20 mg PO DAILY [facility] Last Admin: 09/04/18 10:14 Dose: 20 mg Sertraline HCl (Zoloft -) 150 mg PO DAILY [facility] Last Admin: 09/04/18 10:11 Dose: 150 mg - Objective Vital Signs: Vital Signs Temperature 98.0 F 09/05/18 05:00 Pulse Rate 93 H 09/05/18 05:00 Respiratory Rate 20 09/04/18 15:26 Blood Pressure 132/76 09/05/18 05:00 O2 Sat by Pulse Oximetry (%) 97 09/04/18 21:00 Constitutional: Yes: No Distress, Calm Eyes: Yes: Conjunctiva Clear HENT: Yes: Atraumatic Neck: Yes: Supple Cardiovascular: No: Regular Rate and Rhythm Respiratory: Yes: CTA Bilaterally Gastrointestinal: Yes: Soft. No: Tenderness Genitourinary: No: Hematuria Musculoskeletal: No: Joint Stiffness, Joint Swelling Extremities: No: Cold, Cool, Cyanosis Edema: No Integumentary: No: Rash, Venous Stasis Changes Neurological: Yes: WNL, Alert, Oriented ...Motor Strength: WNL Psychiatric: Yes: WNL, Alert, Oriented. No: Agitated, Suicidal Ideation Labs: CBC, BMP 09/05/18 06:30 09/05/18 06:30 INR, PTT INR 1.69 (0.83-1.09) H 09/02/18 20:04 - ....Imaging Other: Report Reviewed Assessment/Plan 73yo F with PMH of HTN, PE DVT, Afib on eliquis admitted with ARF and UTI / staph aureus on UCx renal fct improved; renal pelvic US negative Iv vanco per ID; check blood cx cardiology and renal f/u; f/u labs falls pfx d.w pt do not get OOB alone d/w pt and staff d/w pt's
--- NOTE | 2018-09-05 09:29 | PN ---
Progress Note (short form) - Note Progress Note: RENAL coverage for Dr Baker asleeroseline, arousable denies complaints Last Vital Signs Temp Pulse Resp BP Pulse Ox 98.0 F 93 H 20 132/76 97 09/05/18 05:00 09/05/18 05:00 09/04/18 15:26 09/05/18 05:00 09/04/18 21:00 Lungs clear cvs s1s2 irr abd soft ext venous insufficiency changes neuro a+o CBC, BMP 09/05/18 06:30 09/05/18 06:30 Current Medications Generic Name Dose Route Start Last Admin Trade Name Freq PRN Reason Stop Dose Admin Acetaminophen 325 mg 09/02/18 19:55 Tylenol - PO Q4H PRN PAIN Apixaban 5 mg 09/03/18 11:25 09/04/18 22:15 Eliquis - PO 5 mg BID CHANG Administration Atorvastatin Calcium 10 mg 09/02/18 22:00 09/04/18 22:15 Lipitor - PO 10 mg HS CHANG Administration Metoprolol Succinate 25 mg 09/03/18 10:00 09/04/18 22:14 Toprol Xl - PO 25 mg BID CHANG Administration Potassium Chloride 20 meq 09/04/18 22:00 09/04/18 22:14 K-Dur - PO 20 meq BID CHANG Administration Potassium Chloride 20 meq 09/05/18 08:47 K-Dur - PO 09/05/18 08:48 ONCE ONE Quinapril HCl 20 mg 09/03/18 10:00 09/04/18 10:14 Accupril - PO 20 mg DAILY CHANG Administration Sertraline HCl 150 mg 09/03/18 10:00 09/04/18 10:11 Zoloft - PO 150 mg DAILY CHANG Administration IMPRESSION 73 year old woman with hx of Hypertension, DVT, Afib on A/C who was sent to the ED by PMD with outpatient labs that showed worsening renal function. #DIANE now resolving likely due to volume depletion in setting of diuretic #Hematuria likely from cystitis #Hypokalemia #Hypertension #anemia PLAN would keep off fluids and diuretics for now and keep monitoring hematuria will need to be evaluated, particularly if persistent MV MV
[2018-09-05] MEDS: metoPROLOL SUCCINATE 25 MG TAB.SR.24H (FP) PO SCH ×2 (09:58→21:30)
[2018-09-05] MEDS: SERTRALINE HCL 50 MG TABLET (FP) PO SCH (09:58)
[2018-09-05] MEDS: APIXABAN 5 MG TABLET PO SCH ×2 (09:58→21:31)
[2018-09-05] MEDS: POTASSIUM CHLORIDE TABS 20 MEQ TABLET.ER (FP) PO SCH ×2 (09:58→21:30)
[2018-09-05] MEDS: QUINAPRIL HCL 20 MG TABLET (FP) PO SCH (09:59)
[2018-09-05] MEDS: VANCOMYCIN 1 GRAM (PRE-DOCKED) 1,000 MG/250 ML BAG IVPB SCH (14:00)
--- NOTE | 2018-09-05 15:24 | PN ---
Progress Note, Physician History of Present Illness: Weakness and dysuria resolving. DIANE improving - Current Medication List Current Medications: Active Medications Acetaminophen (Tylenol -) 325 mg PO Q4H PRN PRN Reason: PAIN Apixaban (Eliquis -) 5 mg PO BID [facility] Last Admin: 09/05/18 09:58 Dose: 5 mg Atorvastatin Calcium (Lipitor -) 10 mg PO HS [facility] Last Admin: 09/04/18 22:15 Dose: 10 mg Vancomycin HCl (Vancomycin (Pre-Docked)) 1,000 mg in 250 mls @ 200 mls/hr IVPB Q24H [facility]; Protocol Last Admin: 09/05/18 14:00 Dose: 200 mls/hr Metoprolol Succinate (Toprol Xl -) 25 mg PO BID [facility] Last Admin: 09/05/18 09:58 Dose: 25 mg Potassium Chloride (K-Dur -) 20 meq PO BID [facility] Last Admin: 09/05/18 09:58 Dose: 20 meq Quinapril HCl (Accupril -) 20 mg PO DAILY [facility] Last Admin: 09/05/18 09:59 Dose: 20 mg Sertraline HCl (Zoloft -) 150 mg PO DAILY [facility] Last Admin: 09/05/18 09:58 Dose: 150 mg - Objective Vital Signs: Vital Signs Temperature 97.6 F 09/05/18 14:41 Pulse Rate 84 09/05/18 14:41 Respiratory Rate 20 09/05/18 14:41 Blood Pressure 115/68 09/05/18 14:41 O2 Sat by Pulse Oximetry (%) 95 09/05/18 09:00 Constitutional: Yes: No Distress, Calm Neck: Yes: Supple Cardiovascular: Yes: Pulse Irregular Respiratory: Yes: Regular, Diminished Gastrointestinal: Yes: Normal Bowel Sounds, Soft Edema: No Labs: CBC, BMP 09/05/18 06:30 09/05/18 06:30 INR, PTT INR 1.69 (0.83-1.09) H 09/02/18 20:04 Problem List - Problems (1) Atrial fibrillation Code(s): I48.91 - UNSPECIFIED ATRIAL FIBRILLATION Qualifiers: Atrial fibrillation type: permanent Qualified Code(s): I48.2 - Chronic atrial fibrillation (2) Right bundle branch block (RBBB) Code(s): I45.10 - UNSPECIFIED RIGHT BUNDLE-BRANCH BLOCK (3) Hypertensive cardiomyopathy Code(s): I11.9 - HYPERTENSIVE HEART DISEASE WITHOUT HEART FAILURE; I43 - CARDIOMYOPATHY IN DISEASES CLASSIFIED ELSEWHERE Qualifiers: Heart failure presence: without heart failure Qualified Code(s): I11.9 - Hypertensive heart disease without heart failure; I43 - Cardiomyopathy in diseases classified elsewhere (4) Hyperlipidemia Code(s): E78.5 - HYPERLIPIDEMIA, UNSPECIFIED Qualifiers: Hyperlipidemia type: pure hypercholesterolemia Qualified Code(s): E78.00 - Pure hypercholesterolemia, unspecified; E78.0 - Pure hypercholesterolemia (5) Chronic anticoagulation Code(s): Z79.01 - RESIDENTIAL (CURRENT) USE OF ANTICOAGULANTS (6) DIANE (acute kidney injury) Code(s): N17.9 - ACUTE KIDNEY FAILURE, UNSPECIFIED Assessment/Plan October 22, 2017 Echo: Normal LV size with mild LVH, normal LV fxn, severe LAE, normal atrial sizes, normal RV size with mild decreased RV fxn, mild MR, TR RVSP 40 mmHg, tr [place] 1. DIANE likely due to volume depletion in setting of diuretic resolving 2. Permanent afib on Eliquis [id number] 3. Hyperlipidemia 4. HTN 5. H/o DVT/PE 6. Staph UTI 7. Anemia P:1. Hold HCTZ, IVF with following renal recovery, replete K 2. Vanco course per C&S 3. Continue Accupril 20 qd, Lipitor 10 qd, Eliquis 5 bid, Lopressor 25 bid
[2018-09-05] MEDS: ATORVASTATIN CA 10 MG TABLET (FP) PO SCH (21:30)
[2018-09-06 07:54] LABS: CALCIUM 9.1 mg/dL (8.5-10.1); CREATININE 1.2 mg/dL (0.55-1.3); POTASSIUM 4.4 mmol/L (3.5-5.1)
[2018-09-06] MEDS: SERTRALINE HCL 50 MG TABLET (FP) PO SCH (10:07)
[2018-09-06] MEDS: APIXABAN 5 MG TABLET PO SCH ×2 (10:07→21:32)
[2018-09-06] MEDS: metoPROLOL SUCCINATE 25 MG TAB.SR.24H (FP) PO SCH ×2 (10:08→21:32)
[2018-09-06] MEDS: POTASSIUM CHLORIDE TABS 20 MEQ TABLET.ER (FP) PO SCH ×2 (10:08→21:32)
[2018-09-06] MEDS: QUINAPRIL HCL 20 MG TABLET (FP) PO SCH (10:12)
--- NOTE | 2018-09-06 12:10 | PN ---
Progress Note, Physician History of Present Illness: Weakness and dysuria resolving. DIANE improving - Current Medication List Current Medications: Active Medications Acetaminophen (Tylenol -) 325 mg PO Q4H PRN PRN Reason: PAIN Apixaban (Eliquis -) 5 mg PO BID [facility] Last Admin: 09/06/18 10:07 Dose: 5 mg Atorvastatin Calcium (Lipitor -) 10 mg PO HS [facility] Last Admin: 09/05/18 21:30 Dose: 10 mg Vancomycin HCl (Vancomycin (Pre-Docked)) 1,000 mg in 250 mls @ 200 mls/hr IVPB Q24H [facility]; Protocol Last Admin: 09/05/18 14:00 Dose: 200 mls/hr Metoprolol Succinate (Toprol Xl -) 25 mg PO BID [facility] Last Admin: 09/06/18 10:08 Dose: 25 mg Potassium Chloride (K-Dur -) 20 meq PO BID [facility] Last Admin: 09/06/18 10:08 Dose: 20 meq Quinapril HCl (Accupril -) 20 mg PO DAILY [facility] Last Admin: 09/06/18 10:12 Dose: 20 mg Sertraline HCl (Zoloft -) 150 mg PO DAILY [facility] Last Admin: 09/06/18 10:07 Dose: 150 mg - Objective Vital Signs: Vital Signs Temperature 98.0 F 09/06/18 06:00 Pulse Rate 97 H 09/06/18 06:00 Respiratory Rate 09/05/18 18:00 Blood Pressure 125/61 09/06/18 06:00 O2 Sat by Pulse Oximetry (%) 96 09/05/18 21:00 Constitutional: Yes: No Distress, Calm, Thin Neck: Yes: Supple Cardiovascular: Yes: Pulse Irregular Respiratory: Yes: Regular, Diminished Gastrointestinal: Yes: Normal Bowel Sounds, Soft Edema: No Labs: CBC, BMP 09/05/18 06:30 09/06/18 06:57 INR, PTT INR 1.69 (0.83-1.09) H 09/02/18 20:04 Problem List - Problems (1) Atrial fibrillation Code(s): I48.91 - UNSPECIFIED ATRIAL FIBRILLATION Qualifiers: Atrial fibrillation type: permanent Qualified Code(s): I48.2 - Chronic atrial fibrillation (2) Right bundle branch block (RBBB) Code(s): I45.10 - UNSPECIFIED RIGHT BUNDLE-BRANCH BLOCK (3) Hypertensive cardiomyopathy Code(s): I11.9 - HYPERTENSIVE HEART DISEASE WITHOUT HEART FAILURE; I43 - CARDIOMYOPATHY IN DISEASES CLASSIFIED ELSEWHERE Qualifiers: Heart failure presence: without heart failure Qualified Code(s): I11.9 - Hypertensive heart disease without heart failure; I43 - Cardiomyopathy in diseases classified elsewhere (4) Hyperlipidemia Code(s): E78.5 - HYPERLIPIDEMIA, UNSPECIFIED Qualifiers: Hyperlipidemia type: pure hypercholesterolemia Qualified Code(s): E78.00 - Pure hypercholesterolemia, unspecified; E78.0 - Pure hypercholesterolemia (5) Chronic anticoagulation Code(s): Z79.01 - SENIOR CARE (CURRENT) USE OF ANTICOAGULANTS (6) DIANE (acute kidney injury) Code(s): N17.9 - ACUTE KIDNEY FAILURE, UNSPECIFIED Assessment/Plan October 22, 2017 Echo: Normal LV size with mild LVH, normal LV fxn, severe LAE, normal atrial sizes, normal RV size with mild decreased RV fxn, mild MR, TR RVSP 40 mmHg, tr [place] 1. DIANE likely due to volume depletion in setting of diuretic resolving 2. Permanent afib on Eliquis [id number] 3. Hyperlipidemia 4. HTN 5. H/o DVT/PE 6. Staph UTI 7. Anemia P:1. Hold HCTZ, IVF with following renal recovery 2. Vanco course per C&S 3. Continue Accupril 20 qd, Lipitor 10 qd, Eliquis 5 bid, Toprol XL 25 bid
[2018-09-06] MEDS ORDERED: CYANOCOBALAMIN (VITAMIN B-12) 1000 MCG/1 ML VIAL IM ONE (14:16)
--- NOTE | 2018-09-06 14:23 | PN ---
Progress Note (short form) - Note Progress Note: dysuria resolved day #5 antibiotics coburn sensitive staph aureus Vital Signs Period Temp Pulse Resp BP Sys/Jacinto Pulse Ox Last 24 Hr 97.6 F-99.7 F 77-97 19-20 115-131/61-76 96 cor-rrr lungs clear abd soft,nt ext no edema CBC, BMP 09/05/18 06:30 09/06/18 06:57 Microbiology 09/02/18 19:53 Urine - Urine Clean Catch Urine Culture - Final Staphylococcus Aureus 09/04/18 14:30 Blood - Peripheral Venous Blood Culture - Preliminary NO GROWTH OBTAINED AFTER 24 HOURS, INCUBATION TO CONTINUE FOR 4 DAYS. 09/04/18 14:25 Blood - Peripheral Venous Blood Culture - Preliminary NO GROWTH OBTAINED AFTER 24 HOURS, INCUBATION TO CONTINUE FOR 4 DAYS. 09/03/18 07:05 Urine - Urine Clean Catch Urine Culture - Final NO GROWTH OBTAINED a/p MSSA uti diane resolved prolonged qtc penicillin allergy (rash) day #5 antibiotics, switch to po keflex 500 bid for 5 days Problem List - Problems (1) DIANE (acute kidney injury) Code(s): N17.9 - ACUTE KIDNEY FAILURE, UNSPECIFIED (2) UTI (urinary tract infection) Code(s): N39.0 - URINARY TRACT INFECTION, SITE NOT SPECIFIED (3) Penicillin allergy Code(s): Z88.0 - ALLERGY STATUS TO PENICILLIN
--- NOTE | 2018-09-06 15:26 | PN ---
Progress Note (short form) - Note Progress Note: Renal follow up for DIANE Pt seen and examined at the bedside awake and alert feels better no sob, cp, abd pain, N/V/D Vital Signs Temperature 99.2 F 09/06/18 10:00 Pulse Rate 77 09/06/18 10:00 Respiratory Rate 19 09/05/18 18:00 Blood Pressure 131/76 09/06/18 10:00 O2 Sat by Pulse Oximetry (%) 96 09/05/18 21:00 Intake & Output 09/03/18 09/04/18 09/05/18 09/06/18 23:59 23:59 23:59 23:59 Intake Total 736 1749 1100 600 Balance 736 1749 1100 600 Weight 71.486 kg NAD irregular, no M/R CTA, no rales or wheeze soft NT/ND no LE edema, clubbing or edema CBC, BMP 09/05/18 06:30 09/06/18 06:57 Renal US - 9.9/9.8, no hydronephross, stones or cysts. Fibroid uterus. CXR- no infiltrate or effusion Current Medications Acetaminophen (Tylenol -) 325 mg PO Q4H PRN PRN Reason: PAIN Apixaban (Eliquis -) 5 mg PO BID [facility] Last Admin: 09/06/18 10:07 Dose: 5 mg Atorvastatin Calcium (Lipitor -) 10 mg PO HS [facility] Last Admin: 09/05/18 21:30 Dose: 10 mg Vancomycin HCl (Vancomycin (Pre-Docked)) 1,000 mg in 250 mls @ 200 mls/hr IVPB Q24H [facility]; Protocol Last Admin: 09/05/18 14:00 Dose: 200 mls/hr Metoprolol Succinate (Toprol Xl -) 25 mg PO BID [facility] Last Admin: 09/06/18 10:08 Dose: 25 mg Potassium Chloride (K-Dur -) 20 meq PO BID [facility] Last Admin: 09/06/18 10:08 Dose: 20 meq Quinapril HCl (Accupril -) 20 mg PO DAILY [facility] Last Admin: 09/06/18 10:12 Dose: 20 mg Sertraline HCl (Zoloft -) 150 mg PO DAILY [facility] Last Admin: 09/06/18 10:07 Dose: 150 mg 73 year old woman with hx of Hypertension, DVT, Afib on A/C who was sent to the ED by PMD with outpatient labs that showed worsening renal function. #DIANE now resolving likely due to volume depletion in setting of diuretic #Hematuria #Hypokalemia #Hypertension #Suspected cystitis Renal function now improved and stable Renal US w/o any structural abnormalities. UA showed hematuria and pyuria likely related to cystitis. would matain off diuretics for now until completion of Abx course or if pt develops edema. Continue ACEi repeat UA after completion of Abx Thank you
[2018-09-06] MEDS: VANCOMYCIN 1 GRAM (PRE-DOCKED) 1,000 MG/250 ML BAG IVPB SCH (15:44)
--- NOTE | 2018-09-06 15:53 | PN ---
Progress Note, Physician Chief Complaint: feels well no new c/o awaiting eval ? cystoscopy? d/w pt and at bedside; pt will need cysto - if not done inpt to be done outpt on ATB per ID for now; - Current Medication List Current Medications: Active Medications Acetaminophen (Tylenol -) 325 mg PO Q4H PRN PRN Reason: PAIN Apixaban (Eliquis -) 5 mg PO BID [facility] Last Admin: 09/06/18 10:07 Dose: 5 mg Atorvastatin Calcium (Lipitor -) 10 mg PO HS [facility] Last Admin: 09/05/18 21:30 Dose: 10 mg Vancomycin HCl (Vancomycin (Pre-Docked)) 1,000 mg in 250 mls @ 200 mls/hr IVPB Q24H [facility]; Protocol Last Admin: 09/06/18 15:44 Dose: 200 mls/hr Metoprolol Succinate (Toprol Xl -) 25 mg PO BID [facility] Last Admin: 09/06/18 10:08 Dose: 25 mg Potassium Chloride (K-Dur -) 20 meq PO BID [facility] Last Admin: 09/06/18 10:08 Dose: 20 meq Quinapril HCl (Accupril -) 20 mg PO DAILY [facility] Last Admin: 09/06/18 10:12 Dose: 20 mg Sertraline HCl (Zoloft -) 150 mg PO DAILY [facility] Last Admin: 09/06/18 10:07 Dose: 150 mg - Objective Vital Signs: Vital Signs Temperature 99.2 F 09/06/18 10:00 Pulse Rate 77 09/06/18 10:00 Respiratory Rate 19 09/05/18 18:00 Blood Pressure 131/76 09/06/18 10:00 O2 Sat by Pulse Oximetry (%) 96 09/05/18 21:00 Constitutional: Yes: No Distress, Calm Eyes: Yes: Conjunctiva Clear HENT: Yes: Atraumatic Neck: Yes: Supple Cardiovascular: No: Regular Rate and Rhythm Respiratory: Yes: CTA Bilaterally Gastrointestinal: Yes: Soft. No: Tenderness Genitourinary: No: CVA Tenderness - Left, CVA Tenderness - Right Musculoskeletal: No: Joint Stiffness, Joint Swelling Extremities: No: Cold, Cool, Cyanosis Edema: No Integumentary: No: Pressure Ulcer, Rash, Venous Stasis Changes Neurological: Yes: WNL, Alert, Oriented ...Motor Strength: WNL Psychiatric: Yes: WNL, Alert, Oriented. No: Agitated, Suicidal Ideation Labs: CBC, BMP 09/05/18 06:30 09/06/18 06:57 INR, PTT INR 1.69 (0.83-1.09) H 09/02/18 20:04 - ....Imaging Other: Report Reviewed Assessment/Plan 73yo F with PMH of HTN, PE DVT, Afib on eliquis admitted with ARF and UTI / staph aureus on UCx renal fct improved; renal pelvic US negative Iv vanco per ID; check blood cx negative so far cardiology and renal f/u; eval cysto? falls pfx d.w pt do not get OOB alone d/w pt and staff d/w pt's at bedside
[2018-09-06] MEDS: ATORVASTATIN CA 10 MG TABLET (FP) PO SCH (21:32)
--- NOTE | 2018-09-07 08:54 | DS ---
Physical Examination Vital Signs: Vital Signs Temperature 98.4 F 09/07/18 06:00 Pulse Rate 96 H 09/07/18 06:00 Respiratory Rate 18 09/07/18 06:00 Blood Pressure 117/61 09/07/18 06:00 O2 Sat by Pulse Oximetry (%) 95 09/06/18 21:00 Findings/Remarks: in bed NAD seen by can have cysto outpt d/w pt and meds, f/u needed Constitutional: Yes: No Distress, Calm Eyes: Yes: Conjunctiva Clear HENT: Yes: Atraumatic Neck: Yes: Supple Cardiovascular: No: Regular Rate and Rhythm Respiratory: Yes: CTA Bilaterally Gastrointestinal: Yes: Soft. No: Tenderness Renal/: No: CVA Tenderness - Left, CVA Tenderness - Right Musculoskeletal: No: Joint Stiffness, Joint Swelling Extremities: No: Cold, Cool, Cyanosis Edema: No Integumentary: No: Rash, Venous Stasis Changes Neurological: Yes: WNL, Alert, Oriented ...Motor Strength: WNL Psychiatric: Yes: WNL, Alert, Oriented. No: Agitated, Suicidal Ideation Labs: CBC, BMP 09/05/18 06:30 09/06/18 06:57 Discharge Summary Reason For Visit: ACUTE KIDNEY INJURY Current Active Problems DIANE (acute kidney injury) (Acute) Abnormal laboratory test result (Acute) Atrial fibrillation (Acute) Chronic anticoagulation (Acute) Hyperlipidemia (Acute) Hypertensive cardiomyopathy (Acute) Penicillin allergy (Acute) Right bundle branch block (RBBB) (Acute) UTI (urinary tract infection) (Acute) Procedures: Principal: 73 YOF ASHD AFib CHF DVT PE OA DJD admitted with UTI with Staph and ARF Other Procedures: renal pelvic US negative; HCT held; IVF given; seen by renal, and cardiology; received ATB per ID Hospital Course: improved with above; DC home and f/u as advised Condition: Guarded - Instructions Diet, Activity, Other Instructions: f/u PCP, and cardiology in 2-4 weeks after DC home; outpt cystoscopy; check labs 1-2 weeks after DC home; drink plenty water; RTER if worse or recurrent c/o; falls PFX Referrals: Yee Sood [Primary Care Provider] - Colt Francis MD., [Staff Physician] - Azar Bo MD [Staff Physician] - Disposition: VNS/HOME HEALTH CARE - Home Medications Comprehensive Discharge Medication List: Ambulatory Orders Acetaminophen [Tylenol .Regular Strength -] 325 mg PO Q4H PRN #0 tablet Atorvastatin Ca [Lipitor] 10 mg PO HS tablet 08/25/14 Quinapril HCl [Accupril -] 20 mg PO BID tablet 08/25/14 Apixaban [Eliquis] 5 mg PO BID 01/23/17 Potassium Chloride [K-Dur -] 20 meq PO BID 09/02/18 Sertraline HCl [Zoloft -] 150 mg PO DAILY 09/02/18 Cephalexin Monohydrate [Keflex -] 500 mg PO BID #10 capsule 09/06/18 Metoprolol Succinate [Toprol XL -] 25 mg PO BID #60 tab.sr.24h 09/06/18
[2018-09-07] MEDS: QUINAPRIL HCL 20 MG TABLET (FP) PO SCH (09:29)
[2018-09-07] MEDS: SERTRALINE HCL 50 MG TABLET (FP) PO SCH (09:30)
[2018-09-07] MEDS: metoPROLOL SUCCINATE 25 MG TAB.SR.24H (FP) PO SCH (09:30)
[2018-09-07] MEDS: APIXABAN 5 MG TABLET PO SCH (09:30)
[2018-09-07] MEDS: POTASSIUM CHLORIDE TABS 20 MEQ TABLET.ER (FP) PO SCH (09:30)
[2018-09-07 10:30] VITALS: BP 101/60; PULSE 78; TEMP 97.9
--- NOTE | 2018-09-07 11:00 | CON.GU ---
Consult Consult Specialty:: Urology Referred by:: Dr Sood Reason for Consultation:: Hematuria - History of Present Illness Chief Complaint: Hematuria - History Source History Provided By: Patient, Medical Record - Past Medical History Cardio/Vascular: Yes: AFIB, CHF, HTN Pulmonary: Yes: Pulmonary Embolus (and DVT in the past) - Past Surgical History Past Surgical History: Yes: Hernia Repair - Alcohol/Substance Use Hx Alcohol Use: No History of Substance Use: reports: None - Smoking History Smoking history: Never smoked Aproximately how many cigarettes per day: 0 - Social History Usual Living Arrangement: With Spouse ADL: Independent History of Recent Travel: No Home Medications - Allergies Allergies/Adverse Reactions: Allergies Allergy/AdvReac Type Severity Reaction Status Date / Time Penicillins Allergy Rash Verified 09/02/18 17:30 - Home Medications Home Medications: Ambulatory Orders Acetaminophen [Tylenol .Regular Strength -] 325 mg PO Q4H PRN #0 tablet Atorvastatin Ca [Lipitor] 10 mg PO HS tablet 08/25/14 Quinapril HCl [Accupril -] 20 mg PO BID tablet 08/25/14 Apixaban [Eliquis] 5 mg PO BID 01/23/17 Potassium Chloride [K-Dur -] 20 meq PO BID 09/02/18 Sertraline HCl [Zoloft -] 150 mg PO DAILY 09/02/18 Cephalexin Monohydrate [Keflex -] 500 mg PO BID #10 capsule 09/06/18 Metoprolol Succinate [Toprol XL -] 25 mg PO BID #60 tab.sr.24h 09/06/18 Review of Systems - Review of Systems Genitourinary: reports: Frequency, Hematuria Physical Exam- Vital Signs: Vital Signs Temperature 97.9 F 09/07/18 10:00 Pulse Rate 78 09/07/18 10:00 Respiratory Rate 20 09/07/18 10:00 Blood Pressure 101/60 09/07/18 10:00 O2 Sat by Pulse Oximetry (%) 94 L 09/07/18 09:00 Labs: CBC, BMP 09/05/18 06:30 09/06/18 06:57 Imaging - Results Ultrasound: Report Reviewed Problem List - Problems (1) Hematuria Assessment/Plan: 73 yo female w recent gross hematuria and UTI Renal sonogram nl Pt will require opd cystoscopy May D/C as planned Currently voiding well no incontinence Code(s): R31.9 - HEMATURIA, UNSPECIFIED (2) Hematuria Code(s): R31.9 - HEMATURIA, UNSPECIFIED
--- NOTE | 2018-09-07 12:10 | PN ---
Progress Note, Physician Chief Complaint: Events noted Not in distress History of Present Illness: Patient was seen and examined. Awake and alert. Chart was reviewed Denies chest pain, SOB or palpitations - Current Medication List Current Medications: Active Medications Acetaminophen (Tylenol -) 325 mg PO Q4H PRN PRN Reason: PAIN Apixaban (Eliquis -) 5 mg PO BID [facility] Last Admin: 09/07/18 09:30 Dose: 5 mg Atorvastatin Calcium (Lipitor -) 10 mg PO HS [facility] Last Admin: 09/06/18 21:32 Dose: 10 mg Vancomycin HCl (Vancomycin (Pre-Docked)) 1,000 mg in 250 mls @ 200 mls/hr IVPB Q24H [facility]; Protocol Last Admin: 09/06/18 15:44 Dose: 200 mls/hr Metoprolol Succinate (Toprol Xl -) 25 mg PO BID [facility] Last Admin: 09/07/18 09:30 Dose: 25 mg Potassium Chloride (K-Dur -) 20 meq PO BID [facility] Last Admin: 09/07/18 09:30 Dose: 20 meq Quinapril HCl (Accupril -) 20 mg PO DAILY [facility] Last Admin: 09/07/18 09:29 Dose: 20 mg Sertraline HCl (Zoloft -) 150 mg PO DAILY [facility] Last Admin: 09/07/18 09:30 Dose: 150 mg - Objective Vital Signs: Vital Signs Temperature 97.9 F 09/07/18 10:00 Pulse Rate 78 09/07/18 10:00 Respiratory Rate 20 09/07/18 10:00 Blood Pressure 101/60 09/07/18 10:00 O2 Sat by Pulse Oximetry (%) 94 L 09/07/18 09:00 Eyes: Yes: PERRL HENT: Yes: Atraumatic Neck: Yes: Supple Cardiovascular: Yes: Pulse Irregular, S1, S2 Respiratory: Yes: CTA Bilaterally Gastrointestinal: Yes: Normal Bowel Sounds, Soft. No: Tenderness Edema: No Problem List - Problems (1) DIANE (acute kidney injury) Code(s): N17.9 - ACUTE KIDNEY FAILURE, UNSPECIFIED (2) Atrial fibrillation Code(s): I48.91 - UNSPECIFIED ATRIAL FIBRILLATION Qualifiers: Atrial fibrillation type: permanent Qualified Code(s): I48.2 - Chronic atrial fibrillation (3) Hyperlipidemia Code(s): E78.5 - HYPERLIPIDEMIA, UNSPECIFIED Qualifiers: Hyperlipidemia type: pure hypercholesterolemia Qualified Code(s): E78.00 - Pure hypercholesterolemia, unspecified; E78.0 - Pure hypercholesterolemia (4) Hypertensive cardiomyopathy Code(s): I11.9 - HYPERTENSIVE HEART DISEASE WITHOUT HEART FAILURE; I43 - CARDIOMYOPATHY IN DISEASES CLASSIFIED ELSEWHERE Qualifiers: Heart failure presence: without heart failure Qualified Code(s): I11.9 - Hypertensive heart disease without heart failure; I43 - Cardiomyopathy in diseases classified elsewhere (5) Right bundle branch block (RBBB) Code(s): I45.10 - UNSPECIFIED RIGHT BUNDLE-BRANCH BLOCK (6) UTI (urinary tract infection) Code(s): N39.0 - URINARY TRACT INFECTION, SITE NOT SPECIFIED Assessment/Plan 1. DIANE likely due to volume depletion in setting of diuretic 2. Permanent AF on DOAC/Eliquis [id number] 3. Hyperlipidemia 4. HTN 5. History of DVT/PE 6. Staph UTI 7. Anemia PLAN: 1. Monitor renal function and electrolytes 2. Antibiotic coverage 3. Continue Accupril 20 mg QD, Lipitor 10 mg QD, Eliquis 5 mg BID and Toprol XL 25 mg BID Discharge planning Mina Cartwright MD
[2018-09-07] MEDS: VANCOMYCIN 1 GRAM (PRE-DOCKED) 1,000 MG/250 ML BAG IVPB SCH (15:38)
== END 2018-09-07 18:51 | disposition home health service (06) | DRG 683 ==
LOC: JER 17:26 → JERBED 19:19 → J6S 09-03 03:06
PROVIDERS: ADMIT Internal Medicine; ATTEND Internal Medicine
DX: N17.9 Acute kidney failure, unspecified (principal); N39.0 Urinary tract infection, site not specified; I10 Essential (primary) hypertension; I48.2 Chronic atrial fibrillation; E78.00 Pure hypercholesterolemia, unspecified; I11.0 Hypertensive heart disease with heart failure; I50.9 Heart failure, unspecified; I43 Cardiomyopathy in diseases classified elsewhere; I45.10 Unspecified right bundle-branch block; E87.6 Hypokalemia; R31.9 Hematuria, unspecified; D64.9 Anemia, unspecified; B95.61 Methicillin susceptible Staphylococcus aureus infection as the cause of diseases classified elsewhere; Z79.01 Long term (current) use of anticoagulants; Z86.718 Personal history of other venous thrombosis and embolism; Z86.711 Personal history of pulmonary embolism; Z88.0 Allergy status to penicillin
CPT/HCPCS: 36415; 71045-TC-FY; 76775-TC; 76856-TC; 80048; 80053; 80162; 81003; 83735; 84100; 85025; 85610; 87040; 87086; 87186; 93005; 93010; 97116-GP; 97161-GP; 99283-25; J7030

== ENCOUNTER 2018-10-02 22:32 | Inpatient (IN) | payer OTHER, MEDICARE ==
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
[2018-10-02] MEDS ORDERED: SODIUM CHLORIDE 500 ML IV STA (23:20)
[2018-10-02 23:35] LABS: EOS % 2.2 % (0-4.5); HEMATOCRIT 35.6 % (32.4-45.2); HEMOGLOBIN 11.7 GM/dL (10.7-15.3); LYMPH % 20.1 % (8-40); MCH 28.4 pg (25.7-33.7); MCHC 32.9 g/dl (32.0-36.0); MEAN CELL VOLUME 86.4 fl (80-96); MEAN PLT VOLUME 7.8 fl (7.5-11.1); MONO % 9.7 % (3.8-10.2); NEUT % 66.1 % (42.8-82.8); PLATELET COUNT 193 K/MM3 (134-434); RBC 4.12 M/mm3 (3.60-5.2); RDW 16.2 % (11.6-15.6)
[2018-10-02 23:36] LABS: BASO % 1.9 % (0-2.0)
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
[2018-10-02 23:56] LABS: INR 1.46 (0.83-1.09); PROTHROMBIN TIME (PATIENT) 17.3 SEC (9.7-13.0)
[2018-10-03 00:02] LABS: ALBUMIN 3.2 g/dl (3.4-5.0); BILIRUBIN,TOTAL 0.7 mg/dL (0.2-1); BLOOD UREA NITROGEN 25.1 mg/dL (7-18); CALCIUM 8.9 mg/dL (8.5-10.1); CREATININE 1.4 mg/dL (0.55-1.3); POTASSIUM 4.5 mmol/L (3.5-5.1); TOT PROT 7.8 g/dl (6.4-8.2)
[2018-10-03 00:14] LABS: EPI CELLS 2.6 /HPF (0-5/HPF); HYALINE CASTS 6 /lpf (0-8); URINE APPEARANCE CLOUDY; URINE BACTERIA 41.8 /hpf (NEGATIVE); URINE BILIRUBIN NEGATIVE (NEGATIVE); URINE COLOR DK YELLOW; URINE GLUCOSE (UA) NEGATIVE (NEGATIVE); URINE KETONE TRACE (NEGATIVE); URINE LEUK ESTERASE 2+ (NEGATIVE); URINE NITRITE NEGATIVE (NEGATIVE); URINE PROTEIN NEGATIVE (NEGATIVE); URINE RBC 3 /hpf (0-4); URINE WBC 13 /hpf (0-5)
[2018-10-03] MEDS ORDERED: CEFTRIAXONE 1,000 MG in DEXTROSE 5%-WATER - 50 ML IVPB ONE (00:16)
[2018-10-03] MEDS ORDERED: METOPROLOL TARTRATE 5 MG/5 ML VIAL IVPUSH ONE (00:33)
[2018-10-03] MEDS ORDERED: ACETAMINOPHEN 325 MG TABLET (FP) PO PRN (01:17)
[2018-10-03] MEDS ORDERED: CEFTRIAXONE 1 GM/50 ML BAG ONE (01:42)
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
[2018-10-03] MEDS: metoPROLOL SUCCINATE 25 MG TAB.SR.24H (FP) PO SCH ×2 (10:14→22:22)
[2018-10-03] MEDS: APIXABAN 5 MG TABLET PO SCH ×2 (10:14→22:22)
[2018-10-03] MEDS: SERTRALINE HCL 50 MG TABLET (FP) PO SCH (10:15)
[2018-10-03] MEDS: QUINAPRIL HCL 20 MG TABLET (FP) PO SCH ×2 (11:06→23:12)
[2018-10-03] MEDS: MULTIVITAMINS (DAILY MVI) TABLET (FP) PO SCH (14:34)
[2018-10-03] MEDS ORDERED: cefTRIAXone SODIUM 1 GM VIAL ONE (20:03)
[2018-10-03] MEDS ORDERED: DEXTROSE 5%-WATER - 50 ML IVPB ONE (20:03)
[2018-10-03] MEDS: CEFTRIAXONE 1 GM in DEXTROSE 5%-WATER - 50 ML IVPB SCH (20:12)
[2018-10-03] MEDS: ATORVASTATIN CA 10 MG TABLET (FP) PO SCH (22:22)
--- NOTE | 2018-10-04 00:18 | EKG ---
Test Reason : Blood Pressure : / mmHG Vent. Rate : 105 BPM Atrial Rate : 105 BPM P-R Int : 000 ms QRS Dur : 126 ms QT Int : 388 ms P-R-T Axes : 000 059 -38 degrees QTc Int : 512 ms POOR DATA QUALITY, INTERPRETATION MAY BE ADVERSELY AFFECTED ATRIAL FIBRILLATION WITH RAPID VENTRICULAR RESPONSE RIGHT BUNDLE BRANCH BLOCK ABNORMAL ECG WHEN COMPARED WITH ECG OF 02-SEP-2018 19:52, QRS DURATION HAS DECREASED T WAVE INVERSION LESS EVIDENT IN ANTERIOR LEADS NONSPECIFIC T WAVE ABNORMALITY NOW EVIDENT IN LATERAL LEADS Confirmed by MD You, Benedict ([id number]) on 10/04/2018 12:18:17 AM Referred By: Confirmed By:Benedict Orta MD
[2018-10-04 07:54] LABS: EOS % 2.7 % (0-4.5); HEMATOCRIT 33.5 % (32.4-45.2); HEMOGLOBIN 11.1 GM/dL (10.7-15.3); MCH 28.8 pg (25.7-33.7); MCHC 33.2 g/dl (32.0-36.0); MEAN CELL VOLUME 86.7 fl (80-96); MEAN PLT VOLUME 8.2 fl (7.5-11.1); MONO % 10.6 % (3.8-10.2); NEUT % 66.7 % (42.8-82.8); PLATELET COUNT 156 K/MM3 (134-434); RBC 3.87 M/mm3 (3.60-5.2); RDW 15.4 % (11.6-15.6); WHITE BLOOD COUNT 4.3 K/mm3 (4.0-10.0)
[2018-10-04 08:39] LABS: ALBUMIN 2.7 g/dl (3.4-5.0); BILIRUBIN,TOTAL 0.4 mg/dL (0.2-1); BLOOD UREA NITROGEN 17.4 mg/dL (7-18); CALCIUM 8.9 mg/dL (8.5-10.1); CREATININE 1.1 mg/dL (0.55-1.3); POTASSIUM 3.6 mmol/L (3.5-5.1); TOT PROT 6.8 g/dl (6.4-8.2)
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
[2018-10-04] MEDS ORDERED: DEXTROSE 5%-WATER - 50 ML IVPB ONE (09:34)
[2018-10-04] MEDS ORDERED: cefTRIAXone SODIUM 1 GM VIAL ONE (09:34)
[2018-10-04] MEDS ORDERED: PT OWN MED DRAWER 7, Y5N ONE (09:34)
[2018-10-04] MEDS: QUINAPRIL HCL 20 MG TABLET (FP) PO SCH ×2 (09:36→23:05)
[2018-10-04] MEDS: MULTIVITAMINS (DAILY MVI) TABLET (FP) PO SCH (09:37)
[2018-10-04] MEDS: APIXABAN 5 MG TABLET PO SCH ×2 (09:37→22:33)
[2018-10-04] MEDS: metoPROLOL SUCCINATE 25 MG TAB.SR.24H (FP) PO SCH ×2 (09:37→22:33)
[2018-10-04] MEDS: SERTRALINE HCL 50 MG TABLET (FP) PO SCH (09:37)
[2018-10-04] MEDS: CEFTRIAXONE 1 GM in DEXTROSE 5%-WATER - 50 ML IVPB SCH (09:38)
--- NOTE | 2018-10-04 10:59 | PN ---
Progress Note, Physician Chief Complaint: in bed NAD VSS no new c/o - Current Medication List Current Medications: Active Medications Acetaminophen (Tylenol -) 650 mg PO Q6H PRN PRN Reason: PAIN Apixaban (Eliquis -) 5 mg PO BID [facility] Last Admin: 10/04/18 09:37 Dose: 5 mg Atorvastatin Calcium (Lipitor -) 10 mg PO HS [facility] Last Admin: 10/03/18 22:22 Dose: 10 mg Ceftriaxone Sodium 1 gm/ (Dextrose) 50 mls @ 100 mls/hr IVPB DAILY [facility] Last Admin: 10/04/18 09:38 Dose: 100 mls/hr Metoprolol Succinate (Toprol Xl -) 25 mg PO BID [facility] Last Admin: 10/04/18 09:37 Dose: 25 mg Multivitamins/Minerals/Vitamin C (Tab-A-Vit -) 1 tab PO DAILY [facility] Last Admin: 10/04/18 09:37 Dose: 1 tab Quinapril HCl (Accupril -) 20 mg PO BID [facility] Last Admin: 10/04/18 09:36 Dose: 20 mg Sertraline HCl (Zoloft -) 150 mg PO DAILY [facility] Last Admin: 10/04/18 09:37 Dose: 150 mg - Objective Vital Signs: Vital Signs Temperature 97.6 F 10/04/18 09:00 Pulse Rate 76 10/04/18 09:00 Respiratory Rate 20 10/04/18 09:00 Blood Pressure 111/70 10/04/18 09:00 O2 Sat by Pulse Oximetry (%) 96 10/03/18 21:00 Constitutional: Yes: No Distress, Calm Eyes: Yes: Conjunctiva Clear HENT: Yes: Atraumatic Neck: Yes: Supple Cardiovascular: No: Regular Rate and Rhythm Respiratory: Yes: CTA Bilaterally Gastrointestinal: Yes: Soft. No: Tenderness Genitourinary: No: CVA Tenderness - Left, CVA Tenderness - Right Musculoskeletal: No: Joint Stiffness, Joint Swelling Extremities: No: Cold, Cool Edema: No Integumentary: No: Rash, Venous Stasis Changes Neurological: Yes: WNL ...Motor Strength: WNL Psychiatric: Yes: WNL. No: Agitated Labs: CBC, BMP 10/04/18 07:00 10/04/18 07:00 INR, PTT INR 1.46 (0.83-1.09) H 10/02/18 23:20 - ....Imaging Other: Report Reviewed Assessment/Plan 73 year old female with PMH UTI, HTN, atrial fibrillation on Eliquis, mitral valve regurg, PE/DVT, gastritis s/p ventral hernia repair, s/p recent UTI, admitted with transitory confusion and possibly recurrent UTI head CT ? 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 neuro input appreciated check UCx; iv ATB falls pfx; do not get OOB alone; dcubs pfx PT rehab eval; d/w pt and staff
[2018-10-04] MEDS: ATORVASTATIN CA 10 MG TABLET (FP) PO SCH (22:33)
--- NOTE | 2018-10-05 07:18 | PN ---
Progress Note, Physician Chief Complaint: in bed NAD MRI noted cerebellar infarct; walked very little with help / PT d/w pt needs SNF / rehab - will call too - Current Medication List Current Medications: Active Medications Acetaminophen (Tylenol -) 650 mg PO Q6H PRN PRN Reason: PAIN Apixaban (Eliquis -) 5 mg PO BID [facility] Last Admin: 10/04/18 22:33 Dose: 5 mg Atorvastatin Calcium (Lipitor -) 10 mg PO HS [facility] Last Admin: 10/04/18 22:33 Dose: 10 mg Ceftriaxone Sodium 1 gm/ (Dextrose) 50 mls @ 100 mls/hr IVPB DAILY [facility] Last Admin: 10/04/18 09:38 Dose: 100 mls/hr Metoprolol Succinate (Toprol Xl -) 25 mg PO BID [facility] Last Admin: 10/04/18 22:33 Dose: 25 mg Multivitamins/Minerals/Vitamin C (Tab-A-Vit -) 1 tab PO DAILY [facility] Last Admin: 10/04/18 09:37 Dose: 1 tab Quinapril HCl (Accupril -) 20 mg PO BID [facility] Last Admin: 10/04/18 23:05 Dose: 20 mg Sertraline HCl (Zoloft -) 150 mg PO DAILY [facility] Last Admin: 10/04/18 09:37 Dose: 150 mg - Objective Vital Signs: Vital Signs Temperature 97.4 F L 10/05/18 06:56 Pulse Rate 72 10/05/18 06:56 Respiratory Rate 20 10/05/18 06:56 Blood Pressure 115/68 10/05/18 06:56 O2 Sat by Pulse Oximetry (%) 96 10/04/18 21:00 Constitutional: Yes: No Distress, Calm Eyes: Yes: Conjunctiva Clear HENT: Yes: Atraumatic Neck: Yes: Supple Cardiovascular: No: Regular Rate and Rhythm Respiratory: Yes: CTA Bilaterally Gastrointestinal: Yes: Soft. No: Tenderness Genitourinary: No: CVA Tenderness - Left, CVA Tenderness - Right, Hematuria Musculoskeletal: No: Joint Stiffness, Joint Swelling Extremities: No: Cold, Cool, Cyanosis Edema: No Integumentary: No: Rash, Venous Stasis Changes Neurological: Yes: WNL, Alert ...Motor Strength: WNL Psychiatric: Yes: WNL, Alert. 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
[2018-10-05 08:07] LABS: CHOLESTEROL 124 mg/dL (50-200); HDL CHOLESTEROL 33 mg/dL (40-60); TRIGLYCERIDES 122 mg/dL (0-150)
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
[2018-10-05] MEDS ORDERED: cefTRIAXone SODIUM 1 GM VIAL ONE (09:42)
[2018-10-05] MEDS ORDERED: DEXTROSE 5%-WATER - 50 ML IVPB ONE (09:42)
[2018-10-05] MEDS: CEFTRIAXONE 1 GM in DEXTROSE 5%-WATER - 50 ML IVPB SCH (09:52)
[2018-10-05] MEDS: APIXABAN 5 MG TABLET PO SCH ×2 (09:53→21:52)
[2018-10-05] MEDS: MULTIVITAMINS (DAILY MVI) TABLET (FP) PO SCH (09:53)
[2018-10-05] MEDS: QUINAPRIL HCL 20 MG TABLET (FP) PO SCH ×2 (09:53→22:33)
[2018-10-05] MEDS: SERTRALINE HCL 50 MG TABLET (FP) PO SCH (09:53)
[2018-10-05] MEDS: metoPROLOL SUCCINATE 25 MG TAB.SR.24H (FP) PO SCH ×2 (09:53→21:52)
--- NOTE | 2018-10-05 10:18 | ECHO ---
Version: 1 Name: NICOLAS MARINO Exam: Adult Echocardiogram Study Date: 10/05/2018, 7:43 AM Age: 73 Years MMode/2D Measurements & Calculations IVSd: 1.15 cm LVIDs: 2.9 cm LVIDd: 3.9 cm LVPWd: 1.08 cm LVOT diam: 2.01 cm Ao root diam: 3.1 cm LA dimension: 4.8 cm Doppler Measurements & Calculations MV E max ajmil: 101.0 cm/sec Med E/e': 14.7 Lat E/e': 12.9 Med Peak E' Jamil: 6.9 cm/sec Lat Peak E' Jamil: 7.8 cm/sec MR max P.5 mmHg Ao max P.1 mmHg Ao V2 max: 150.7 cm/sec TR max jamil: 220.9 cm/sec TR max P.9 mmHg Left Ventricle Left ventricular systolic function is low normal. Ejection Fraction = 50. The transmitral spectral D oppler flow pattern is suggestive of impaired LV relaxation. Right Ventricle The right ventricle is normal in size and function. Atria The left atrium is moderately dilated. The right atrium is moderately dilated. Mitral Valve There is moderate mitral annular calcification. There is mild mitral regurgitation. Tricuspid Valve The tricuspid valve is normal. There is mild tricuspid regurgitation. Aortic Valve There is moderate aortic sclerosis.;. Trace aortic regurgitation. Pulmonic Valve The pulmonic valve is not well seen, but is grossly normal. Mild pulmonic valvular regurgitation. Great Vessels The aortic root is normal size. Normal aortic arch, descending and ascending aorta. Summary Statements Left ventricular systolic function is low normal. The transmitral spectral Doppler flow pattern is suggestive of impaired LV relaxation. The right ventricle is normal in size and function. The left atrium is moderately dilated. The right atrium is moderately dilated. There is moderate mitral annular calcification. There is mild mitral regurgitation. The tricuspid valve is normal. There is mild tricuspid regurgitation. There is moderate aortic sclerosis.; Trace aortic regurgitation. The pulmonic valve is not well seen, but is grossly normal. Mild pulmonic valvular regurgitation. The aortic root is normal size. Normal aortic arch, descending and ascending aorta Eddie Niremberg 10/05/2018, 9:17 AM Ordering Physician: Yee Sood Performed By: Evelin Aranda
[2018-10-05 16:51] VITALS: BMI 26.5
[2018-10-05] MEDS: ATORVASTATIN CA 10 MG TABLET (FP) PO SCH (21:52)
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
[2018-10-06] MEDS ORDERED: cefTRIAXone SODIUM 1 GM VIAL ONE (10:38)
[2018-10-06] MEDS ORDERED: DEXTROSE 5%-WATER - 50 ML IVPB ONE (10:38)
[2018-10-06] MEDS: SERTRALINE HCL 50 MG TABLET (FP) PO SCH (10:48)
[2018-10-06] MEDS: metoPROLOL SUCCINATE 25 MG TAB.SR.24H (FP) PO SCH (10:48)
[2018-10-06] MEDS: CEFTRIAXONE 1 GM in DEXTROSE 5%-WATER - 50 ML IVPB SCH (10:48)
[2018-10-06] MEDS: APIXABAN 5 MG TABLET PO SCH (10:48)
[2018-10-06] MEDS: MULTIVITAMINS (DAILY MVI) TABLET (FP) PO SCH (10:49)
[2018-10-06] MEDS: QUINAPRIL HCL 20 MG TABLET (FP) PO SCH (10:49)
[2018-10-06 15:03] VITALS: PULSE 88; TEMP 98.2
--- NOTE | 2018-10-06 15:10 | PN ---
Progress Note, Physician Chief Complaint: alert NAD at bedside; d/w them in detail pt's condition, echo, carotids , brain MRI pt's said she was not taking her meds at home as she should have ( sometimes she refused sometimes she was asleep and she missed doses) d/w them improtance to take meds as prescribed; she has AFib is on BP meds, statin and eliquis and it is improtant to take them as ordered to prevent strokes NC and other CV events also d/w them about PT rehab; she is weak and heeds help getting OOB; they are in agreement now to go for SNF for rehab d/w CM - Current Medication List Current Medications: Active Medications Acetaminophen (Tylenol -) 650 mg PO Q6H PRN PRN Reason: PAIN Apixaban (Eliquis -) 5 mg PO BID [facility] Last Admin: 10/06/18 10:48 Dose: 5 mg Atorvastatin Calcium (Lipitor -) 10 mg PO [facility] Last Admin: 10/05/18 21:52 Dose: 10 mg Metoprolol Succinate (Toprol Xl -) 25 mg PO BID [facility] Last Admin: 10/06/18 10:48 Dose: 25 mg Multivitamins/Minerals/Vitamin C (Tab-A-Vit -) 1 tab PO DAILY [facility] Last Admin: 10/06/18 10:49 Dose: 1 tab Quinapril HCl (Accupril -) 20 mg PO BID [facility] Last Admin: 10/06/18 10:49 Dose: 20 mg Sertraline HCl (Zoloft -) 150 mg PO DAILY [facility] Last Admin: 10/06/18 10:48 Dose: 150 mg - Objective Vital Signs: Vital Signs Temperature 98.2 F 10/06/18 15:01 Pulse Rate 88 10/06/18 15:01 Respiratory Rate 18 10/06/18 15:01 Blood Pressure 135/51 L 10/06/18 15:01 O2 Sat by Pulse Oximetry (%) 97 10/05/18 21:00 Constitutional: Yes: No Distress, Calm Eyes: Yes: Conjunctiva Clear HENT: Yes: Atraumatic Neck: Yes: Supple Cardiovascular: No: Regular Rate and Rhythm Respiratory: Yes: CTA Bilaterally Gastrointestinal: Yes: Soft. No: Tenderness Genitourinary: No: CVA Tenderness - Left, CVA Tenderness - Right Musculoskeletal: No: Joint Stiffness, Joint Swelling Extremities: No: Cold, Cool, Cyanosis Edema: No Integumentary: Yes: Venous Stasis Changes. No: Rash Neurological: Yes: WNL, Alert ...Motor Strength: WNL Psychiatric: Yes: WNL, Alert. No: Agitated, Suicidal Ideation Labs: CBC, BMP 10/04/18 07:00 10/04/18 07:00 INR, PTT INR 1.46 (0.83-1.09) H 10/02/18 23:20 - ....Imaging Other: Report Reviewed Assessment/Plan 73 year old female with PMH UTI, HTN, atrial fibrillation on Eliquis, mitral valve regurg, PE/DVT, gastritis s/p ventral hernia repair, s/p recent UTI, admitted with transitory confusion and recurrent UTI head CT / MRI old cerebellar CVA neuro input appreciated, check echo and carotids check UCx; contaminated falls pfx; do not get OOB alone; decubs pfx should go to SNF for PT rehab d/w pt and staff and pt's
--- NOTE | 2018-10-06 15:56 | DS ---
Physical Examination Vital Signs: Vital Signs Temperature 98.2 F 10/06/18 15:01 Pulse Rate 88 10/06/18 15:01 Respiratory Rate 18 10/06/18 15:01 Blood Pressure 135/51 L 10/06/18 15:01 O2 Sat by Pulse Oximetry (%) 97 10/05/18 21:00 Findings/Remarks: see progress note from today pt accepted to [facility] for rehab Constitutional: Yes: No Distress, Calm Eyes: Yes: Conjunctiva Clear HENT: Yes: Atraumatic Neck: Yes: Supple Cardiovascular: No: Regular Rate and Rhythm Respiratory: Yes: CTA Bilaterally Gastrointestinal: Yes: Soft. No: Tenderness Renal/: No: CVA Tenderness - Left, CVA Tenderness - Right, Hematuria Musculoskeletal: No: Joint Stiffness, Joint Swelling Extremities: No: Cold, Cool Edema: No Integumentary: Yes: Venous Stasis Changes Neurological: Yes: WNL, Alert ...Motor Strength: WNL Psychiatric: Yes: WNL, Alert. No: Agitated, Suicidal Ideation Labs: CBC, BMP 10/04/18 07:00 10/04/18 07:00 Discharge Summary Reason For Visit: URINARY TRACT INFECTION, ALTERED MENTAL STATUS Current Active Problems Altered mental status (Acute) UTI (urinary tract infection) (Acute) Procedures: Principal: 73 YOF ASHD AFib HTN CVA admitted with confusion and weakness;. noncompliant with meds; Other Procedures: seen by neurology had head CT and MRI old CVA;. UTI / IV ATB Hospital Course: improved with above; needs rehab; d/w pt and compliance with meds f/u as advised - Instructions Diet, Activity, Other Instructions: f/u CBC CMP in 2-3 days in [place] (after DC from hospital) PCP, cardiology and f/u as ordered; vascular surgery dr Dixon for legs circulation outpt; falls PFX podiatry f/u take meds as advised Referrals: Yee Sood [Staff Physician] - Azar Bo MD [Staff Physician] - Erlin Pinto MD [Staff Physician] - Rikki Phillip DO [Staff Physician] - Disposition: ALF FACILITY - Home Medications Comprehensive Discharge Medication List: Ambulatory Orders Atorvastatin Ca [Lipitor] 10 mg PO HS tablet 08/25/14 Quinapril HCl [Accupril -] 20 mg PO BID tablet 08/25/14 Apixaban [Eliquis] 5 mg PO BID 01/23/17 Sertraline HCl [Zoloft -] 150 mg PO DAILY 09/02/18 Metoprolol Succinate [Toprol XL -] 25 mg PO BID #60 tab.sr.24h 09/06/18 Acetaminophen [Tylenol .Regular Strength -] 650 mg PO Q6H PRN tablet 10/06/18 Multivitamins [Multivit ([facility] Formulary)] 1 tab PO DAILY tab 10/06/18 Potassium Chloride [K-Dur -] 20 meq PO DAILY #90 tablet.er 10/06/18
[2018-10-06] MEDS ORDERED: POTASSIUM CHLORIDE TABS 10 MEQ TABLET.ER (FP) PO SCH (16:00)
[2018-10-06 19:25] VITALS: BP 90/60
== END 2018-10-06 19:37 | DRG 689 ==
LOC: JER 22:32 → JERBED 10-03 00:22 → J8W 10-03 02:28
PROVIDERS: ADMIT Internal Medicine; ATTEND Internal Medicine
DX: N39.0 Urinary tract infection, site not specified (principal); G93.41 Metabolic encephalopathy; J98.11 Atelectasis; I67.82 Cerebral ischemia; I10 Essential (primary) hypertension; I48.91 Unspecified atrial fibrillation; Z79.01 Long term (current) use of anticoagulants; I34.0 Nonrheumatic mitral (valve) insufficiency; E78.5 Hyperlipidemia, unspecified; Z86.718 Personal history of other venous thrombosis and embolism; Z86.711 Personal history of pulmonary embolism; Z95.4 Presence of other heart-valve replacement; K29.70 Gastritis, unspecified, without bleeding; R00.0 Tachycardia, unspecified; I87.8 Other specified disorders of veins; Z91.14 Patient's other noncompliance with medication regimen
CPT/HCPCS: 36415; 70450-TC; 70551-TC; 71045-TC-FY; 80048; 80053; 80061; 81003; 83721; 84443; 85025; 85610; 85730; 87086; 93005; 93010; 93306-TC; 93880-TC; 97116-GP; 97161-GP; 99284-25; J7030

== ENCOUNTER 2018-11-26 01:07 | Inpatient (IN) | payer OTHER, MEDICARE ==
--- NOTE | 2018-11-26 01:18 | PDOC ---
History of Present Illness - General Stated Complaint: ALTERED MENTAL STATUS - History of Present Illness Initial Comments: The pt is a 73F w/ a history of HTN, a-fib (warfarin), HLD who presents for evaluation of altered mental status from [facility]. The pt reportedly thought she was a member of the staff, was trying to assist her roommate in going to the bathroom and subsequently barricaded herself in the room. The pt denies pain or fall. She endorses dysuria. Denies fevers/chills, chest pain, trouble breathing, change in vision, WARREN, diarrhea, blood in her stool, or blood in her urine. 11/26/18 01:34 Past History - Past Medical History Allergies/Adverse Reactions: Allergies Allergy/AdvReac Type Severity Reaction Status Date / Time Penicillins Allergy Rash Verified 11/26/18 01:34 Home Medications: Ambulatory Orders Atorvastatin Ca [Lipitor] 10 mg PO HS tablet 08/25/14 Quinapril HCl [Accupril -] 20 mg PO BID tablet 08/25/14 Apixaban [Eliquis] 5 mg PO BID 01/23/17 Sertraline HCl [Zoloft -] 150 mg PO DAILY 09/02/18 Metoprolol Succinate [Toprol XL -] 25 mg PO BID #60 tab.sr.24h 09/06/18 Acetaminophen [Tylenol .Regular Strength -] 650 mg PO Q6H PRN tablet 10/06/18 Multivitamins [Multivit ([facility] Formul[facility])] 1 tab PO DAILY tab 10/06/18 Potassium Chloride [K-Dur -] 20 meq PO DAILY #90 tablet.er 10/06/18 Nitrofurantoin Monohyd/M-Cryst [Macrobid -] 100 mg PO BID 11/26/18 Olanzapine [Zyprexa] 5 mg PO BID 11/26/18 Anemia: No Asthma: No Cancer: Yes Cardiac Disorders: Yes (MURMUR, ATRIAL FIBRILLATION) 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) COPD: No CHF: No Dementia: No Diabetes: No GI Disorders: No Disorders: No HTN: Yes Hypercholesterolemia: Yes Liver Disease: No Seizures: No Thyroid Disease: No - Surgical History Abdominal Surgery: Yes (hernia) Appendectomy: No Cardiac Surgery: No Cholecystectomy: No Lung Surgery: No Neurologic Surgery: No Orthopedic Surgery: No - Suicide/Smoking/Psychosocial Hx Smoking Status: No Smoking History: Unknown if ever smoked Number of Cigarettes Smoked Daily: 0 Hx Alcohol Use: No Drug/Substance Use Hx: No Substance Use Type: None Hx Substance Use Treatment: No Review of Systems - Review of Systems Able to Perform ROS?: Yes Comments:: GENERAL/CONSTITUTIONAL: No fever or chills HEAD, EYES, EARS, NOSE AND THROAT: No change in vision. No change in hearing. No sore throat CARDIOVASCULAR: No chest pain or shortness of breath RESPIRATORY: Denies cough, hemoptysis GASTROINTESTINAL: No nausea, vomiting, diarrhea or constipation GENITOURINARY: +dysuria MUSCULOSKELETAL: No joint or muscle swelling or pain. No neck or back pain SKIN: No rash NEUROLOGIC: No WARREN, vertigo, loss of consciousness, or change in strength/ sensation ENDOCRINE: No increased thirst. No abnormal weight change HEMATOLOGIC/LYMPHATIC: No anemia, easy bleeding, or history of blood clots ALLERGIC/IMMUNOLOGIC: No hives or skin allergy 11/26/18 01:18 Is the patient limited Citizen Of [place] proficient: No *Physical Exam - Vital Signs Initial Vital Signs Temp Pulse Resp BP Pulse Ox 98.4 F 82 20 120/70 99 11/26/18 01:15 11/26/18 01:15 11/26/18 01:15 11/26/18 01:15 11/26/18 01:15 11/26/18 01:43 - Physical Exam Comments: GENERAL: Awake, alert, and oriented to person/place, in no acute distress HEAD: No signs of trauma, normocephalic, atraumatic EYES: PERRLA, EOMI, sclera anicteric, conjunctiva clear ENT: Hearing grossly normal, nares patent, oropharynx clear without exudates. Moist mucosa LUNGS: No distress, speaks in full sentences, clear to auscultation bilaterally HEART: Regular rate and rhythm, normal S1 and S2, no murmurs appreciated, peripheral pulses normal and equal bilaterally ABDOMEN: Soft, suprapubic TTP w/o rebound or guarding, normoactive bowel sounds EXTREMITIES: Normal inspection, Normal range of motion, no edema. No clubbing or cyanosis NEUROLOGICAL: Cranial nerves II through XII grossly intact. Tangential speech, no focal sensorimotor deficits SKIN: BLE venous stasis changes, no open wounds observed, warm/dry 11/26/18 01:18 ED Treatment Course - LABORATORY CBC & Chemistry Diagram: 11/26/18 02:13 11/26/18 02:13 Medical Decision Making - Medical Decision Making The pt is a 73F w/ a history of a-fib (coumadin), HTN, HLD who presents for evaluation of AMS and dysuria Ddx: UTI, not likely sepsis (afebrile, non-tachy, normotensive), consider PNA, ICH, metabolic dysfunction ED Course CMP, CBC, Trop I, UA, UCx CXR, CT head w/o ECG 11/26/18 01:43 CXR w/o PNA, PNX, effusion 11/26/18 03:10 CT Head w/o acute pathology/bleed. Chronic atrophy and small vessel ischemic changes No leukocytosis No anemia Lytes unremarkable LFTs wnl No DIANE Trop I neg UA pending 11/26/18 03:18 ECG w/ a-fib w/ RBBB seen previously; HR 109; QTc 557 11/26/18 03:[address] Sood's service, awaiting call back 11/26/18 04:12 Pt signed out to Dr. Sood Ceftriaxone given for UTI 11/26/18 04:20 *DC/Admit/Observation/Transfer Diagnosis at time of Disposition: Altered mental status Qualifiers: Altered mental status type: unspecified Qualified Code(s): R41.82 - Altered mental status, unspecified Atrial fibrillation Qualifiers: Atrial fibrillation type: unspecified Qualified Code(s): I48.91 - Unspecified atrial fibrillation - Discharge Dispostion Condition at time of disposition: Good Decision to Admit order: Yes - Referrals Referrals: Eryn Delgado MD [Primary Care Provider] - - Patient Instructions - Post Discharge Activity
--- NOTE | 2018-11-26 01:57 | PDOC ---
Documentation entered by Niki Paez SCRIBE, acting as scribe for Patrick Spears MD. Patrick Spears MD: This documentation has been prepared by the yomaira, Niki Paez SCRIBE, under my direction and personally reviewed by me in its entirety. I confirm that the documentation accurately reflects all work, treatment, procedures, and medical decision making performed by me. Attending Attestation - Resident Resident Name: Ashish May - ED Attending Attestation I have performed the following: I have examined & evaluated the patient, The case was reviewed & discussed with the resident, I agree w/resident's findings & plan, Exceptions are as noted - HPI HPI: 11/26/18 01:53 The patient is a 73-year-old female with a past medical history significant for HTN, Afib (on Warfarin), and HLD presents to the emergency department via EMS from [facility] for AMS. The patient reportedly through she was a staff member at the [facility], was trying to assist her roommate in going to the bathroom. The patient reports concern of dysuria. Denies fall or injury. Denies fever or chills. - Physicial Exam PE: 11/26/18 06:01 Agree with exam as documented by resident - Medical Decision Making 11/26/18 06:01 73F sent for eval of acute AMS a/w complaint of dysuria Likely 2/2 uti, less likely intracranial pathololgy, bleed, lesion, consider metabolic dysfunction, electrolyte abnormality f/u labs, cxr, ctb, ua, ucx +UA for uti ctx admit
[2018-11-26 02:26] LABS: HEMOGLOBIN 11.3 GM/dL (10.7-15.3); RDW 15.8 % (11.6-15.6)
[2018-11-26 02:38] LABS: BASO % 0.7 % (0-2.0); EOS % 1.9 % (0-4.5); HEMATOCRIT 34.7 % (32.4-45.2); LYMPH % 20.7 % (8-40); MCH 29.4 pg (25.7-33.7); MCHC 32.4 g/dl (32.0-36.0); MEAN CELL VOLUME 90.6 fl (80-96); MEAN PLT VOLUME 8.2 fl (7.5-11.1); MONO % 8.9 % (3.8-10.2); NEUT % 67.8 % (42.8-82.8); PLATELET COUNT 183 K/MM3 (134-434); RBC 3.83 M/mm3 (3.60-5.2); WHITE BLOOD COUNT 6.7 K/mm3 (4.0-10.0)
[2018-11-26 02:44] LABS: INR 1.42 (0.83-1.09); PROTHROMBIN TIME (PATIENT) 16.8 SEC (9.7-13.0)
[2018-11-26 03:09] LABS: ALBUMIN 3.3 g/dl (3.4-5.0); BILIRUBIN,TOTAL 0.6 mg/dL (0.2-1); BLOOD UREA NITROGEN 14.9 mg/dL (7-18); CALCIUM 9.4 mg/dL (8.5-10.1); CREATININE 0.8 mg/dL (0.55-1.3); MAGNESIUM 2.5 mg/dL (1.8-2.4); POTASSIUM 4.2 mmol/L (3.5-5.1); TOT PROT 7.2 g/dl (6.4-8.2)
[2018-11-26 04:01] LABS: EPI CELLS 3.2 /HPF (0-5/HPF); HYALINE CASTS 6 /lpf (0-8); URINE APPEARANCE CLEAR; URINE BACTERIA 14.1 /hpf (NEGATIVE); URINE BILIRUBIN NEGATIVE (NEGATIVE); URINE COLOR DK YELLOW; URINE GLUCOSE (UA) NEGATIVE (NEGATIVE); URINE KETONE TRACE (NEGATIVE); URINE LEUK ESTERASE 2+ (NEGATIVE); URINE NITRITE NEGATIVE (NEGATIVE); URINE PROTEIN TRACE (NEGATIVE); URINE RBC 6 /hpf (0-4); URINE UROBILINOGEN 0.2 mg/dL (0.2-1.0); URINE WBC 28 /hpf (0-5)
[2018-11-26 04:02] LABS: URINE CRYSTALS NONE SEEN /hpf
[2018-11-26] MEDS ORDERED: CEFTRIAXONE 1,000 MG in DEXTROSE 5%-WATER - 50 ML IVPB ONE (04:07)
[2018-11-26] MEDS ORDERED: CEFTRIAXONE 1 GM/50 ML BAG ONE ×2 (04:20→08:35)
[2018-11-26] MEDS ORDERED: risperiDONE 1 MG TABLET (FP) PO ONE (04:39)
[2018-11-26] MEDS ORDERED: risperiDONE 0.5 MG TABLET (FP) ONE (04:41)
[2018-11-26] MEDS ORDERED: LORazepam 2 MG/ML SDV VIAL IM ONE (04:56)
[2018-11-26] MEDS ORDERED: LORazepam 2 MG/ML SDV VIAL ONE (04:59)
[2018-11-26] MEDS ORDERED: ACETAMINOPHEN 325 MG TABLET (FP) PO PRN (08:54)
--- NOTE | 2018-11-26 08:54 | HP ---
Admitting History and Physical - Primary Care Physician PCP: Yee Sood S - Admission Chief Complaint: changes MS History of Present Illness: The pt is a 73F w/ a history of HTN, a-fib (warfarin), CVAs, dementia, HLD who presents for evaluation of altered mental status from [facility]. The pt reportedly thought she was a member of the staff, was trying to assist her roommate in going to the bathroom and subsequently barricaded herself in the room. The pt denies pain or fall. She endorses dysuria. Denies fevers/chills, chest pain, trouble breathing, change in vision, WARREN, diarrhea, blood in her stool, or blood in her urine. Prior to her recent hospitalizations and SNF admission pt used to live home with her ; per pt was chronically nonc/w meds she was not taking her heart medications and her AC (eliquis) History Source: Patient Limitations to Obtaining History: No Limitations - Past Medical History Cardiovascular: Yes: AFIB, CHF, HTN Pulmonary: Yes: Pulmonary Embolus (and DVT in the past) Renal/: Yes: Renal Failure, UTI - Past Surgical History Past Surgical History: Yes: Hernia Repair - Smoking History Smoking history: Unknown if ever smoked Aproximately how many cigarettes per day: 0 - Alcohol/Substance Use Hx Alcohol Use: No History of Substance Use: reports: None - Social History Usual Living Arrangement: Yes: Long-Term ADL: Independent History of Recent Travel: No Home Medications - Allergies Allergies/Adverse Reactions: Allergies Allergy/AdvReac Type Severity Reaction Status Date / Time Penicillins Allergy Rash Verified 11/26/18 01:34 - Home Medications Home Medications: Ambulatory Orders Atorvastatin Ca [Lipitor] 10 mg PO HS tablet 08/25/14 Quinapril HCl [Accupril -] 20 mg PO BID tablet 08/25/14 Apixaban [Eliquis] 5 mg PO BID 01/23/17 Sertraline HCl [Zoloft -] 150 mg PO DAILY 09/02/18 Metoprolol Succinate [Toprol XL -] 25 mg PO BID #60 tab.sr.24h 09/06/18 Acetaminophen [Tylenol .Regular Strength -] 650 mg PO Q6H PRN tablet 10/06/18 Multivitamins [Multivit ([facility] Formul[facility])] 1 tab PO DAILY tab 10/06/18 Potassium Chloride [K-Dur -] 20 meq PO DAILY #90 tablet.er 10/06/18 Nitrofurantoin Monohyd/M-Cryst [Macrobid -] 100 mg PO BID 11/26/18 Olanzapine [Zyprexa] 5 mg PO BID 11/26/18 Family Disease History - Family Disease History Family History: Unremarkable Review of Systems - Review of Systems Constitutional: reports: Fever. denies: Chills Eyes: denies: Blurred Vision HENT: denies: Epistaxis Cardiovascular: denies: Chest Pain, Edema, Shortness of Breath Respiratory: denies: Cough, SOB Gastrointestinal: denies: Abdominal Pain, Diarrhea, Vomiting Genitourinary: reports: Dysuria. denies: Flank Pain, Vaginal Bleeding Integumentary: denies: Rash, Wound Neurological: reports: Change in LOC, Confusion, Unsteady Gait. denies: Headache, Seizure, Syncope Hematology/Lymphatic: denies: Easily Bruised, Excessive Bleeding Psychiatric: reports: Altered Sleep Pattern Physical Examination Vital Signs: Vital Signs Temperature 98.6 F 11/26/18 07:15 Pulse Rate 90 11/26/18 07:15 Respiratory Rate 17 11/26/18 07:15 Blood Pressure 113/68 11/26/18 07:15 O2 Sat by Pulse Oximetry (%) 96 11/26/18 07:15 Constitutional: Yes: No Distress, Calm Eyes: Yes: Conjunctiva Clear HENT: Yes: Atraumatic Neck: Yes: Supple Cardiovascular: No: Regular Rate and Rhythm Respiratory: Yes: CTA Bilaterally Gastrointestinal: Yes: Soft. No: Tenderness Renal/: No: Hematuria Musculoskeletal: No: Joint Stiffness, Joint Swelling Extremities: No: Cold, Cool, Cyanosis Edema: No Integumentary: No: Rash, Venous Stasis Changes Neurological: Yes: Alert, Unsteady Gait. No: Oriented, Seizure ...Motor Strength: WNL Psychiatric: Yes: Alert. No: Oriented, Agitated Labs: CBC, BMP 11/26/18 02:13 11/26/18 02:13 Imaging - Results Chest X-ray: Report Reviewed Cat Scan: Report Reviewed Other: Report Reviewed Assessment/Plan The pt is a 73F w/ a history of HTN, a-fib (warfarin), CVA, HLD who presents for evaluation of altered mental status from [facility]. found to have pyuria r/o UTI iv ceftriaxone neurology and psych eval fall pfx, decubs d/w pt and staff d/w pt's son Erlin
[2018-11-26] MEDS ORDERED: LORazepam 2 MG/ML SDV VIAL IM PRN (08:55)
[2018-11-26] MEDS ORDERED: POTASSIUM CHLORIDE TABS 10 MEQ TABLET.ER (FP) PO SCH (10:00)
[2018-11-26] MEDS: metoPROLOL SUCCINATE 25 MG TAB.SR.24H (FP) PO SCH ×2 (11:43→21:53)
[2018-11-26] MEDS: SERTRALINE HCL 50 MG TABLET (FP) PO SCH (11:43)
[2018-11-26] MEDS: APIXABAN 5 MG TABLET PO SCH ×2 (11:43→21:53)
[2018-11-26] MEDS: QUINAPRIL HCL 20 MG TABLET (FP) PO SCH ×2 (11:43→21:53)
[2018-11-26] MEDS: MULTIVITAMINS (DAILY MVI) TABLET (FP) PO SCH (11:43)
[2018-11-26] MEDS: OLANZapine 5 MG TABLET PO SCH ×2 (11:44→21:53)
--- NOTE | 2018-11-26 11:44 | EKG ---
Test Reason : Blood Pressure : / mmHG Vent. Rate : 109 BPM Atrial Rate : 050 BPM P-R Int : 000 ms QRS Dur : 152 ms QT Int : 414 ms P-R-T Axes : 000 090 -24 degrees QTc Int : 557 ms ATRIAL FIBRILLATION WITH RAPID VENTRICULAR RESPONSE WITH PREMATURE VENTRICULAR OR ABERRANTLY CONDUCTED COMPLEXES RIGHT BUNDLE BRANCH BLOCK ABNORMAL ECG WHEN COMPARED WITH ECG OF 03-OCT-2018 00:09, QRS DURATION HAS INCREASED NONSPECIFIC T WAVE ABNORMALITY NO LONGER EVIDENT IN LATERAL LEADS Confirmed by AKIN COLLINS MD ([id number]) on 11/26/2018 11:44:30 AM Referred By: Confirmed By:AKIN COLLINS MD
--- NOTE | 2018-11-26 16:21 | PN ---
Mental Health Exam - Mental Status Exam Alert and Oriented to: Time (disorientated to all. ) Cognitive Function: Impaired Patient Appearance: Unkempt, Disheveled Mood: Elated, Hostile, Expansive, Irritable Affect: Mood Congruent, Labile Patient Behavior: Combative, Suspicious, Belligerent Speech Pattern: Rambling Voice Loudness: Normal Thought Process: Circumstantial, Loose Associations, Tangential, Disorganized, Disoriented Thought Disorder: Present, Paranoid Ideation, Ideas of Reference Hallucinations: Denies Suicidal Ideation: Denies Homicidal Ideation: Denies Insight/Judgement: Poor Sleep: Fair Appetite: Fair Muscle strength/Tone: Normal Gait/Station: Deferred Additional Comments: Client with dementia with behavioural disturbances. Continue [id number] po bid, continue zoloft 100mg po daily. met son and , client is anxious, altered mental staus. Dementia with behavioural disturbances.
[2018-11-26 17:41] VITALS: BMI 26.9
[2018-11-26] MEDS: ATORVASTATIN CA 10 MG TABLET (FP) PO SCH (21:53)
[2018-11-27] MEDS ORDERED: cefTRIAXone SODIUM 1 GM VIAL ONE (06:04)
[2018-11-27] MEDS ORDERED: DEXTROSE 5%-WATER - 50 ML IVPB ONE (06:04)
[2018-11-27] MEDS: CEFTRIAXONE 1 GM in DEXTROSE 5%-WATER - 50 ML IVPB SCH (06:44)
[2018-11-27 07:58] LABS: BASO % 1.1 % (0-2.0); EOS % 2.9 % (0-4.5); HEMATOCRIT 31.5 % (32.4-45.2); HEMOGLOBIN 10.6 GM/dL (10.7-15.3); LYMPH % 28.9 % (8-40); MCH 30.2 pg (25.7-33.7); MCHC 33.5 g/dl (32.0-36.0); MEAN PLT VOLUME 7.9 fl (7.5-11.1); MONO % 10.1 % (3.8-10.2); PLATELET COUNT 150 K/MM3 (134-434); RDW 15.6 % (11.6-15.6); WHITE BLOOD COUNT 4.5 K/mm3 (4.0-10.0)
[2018-11-27 08:43] LABS: ALBUMIN 2.7 g/dl (3.4-5.0); BILIRUBIN,TOTAL 0.4 mg/dL (0.2-1); CALCIUM 8.7 mg/dL (8.5-10.1); CREATININE 0.8 mg/dL (0.55-1.3); POTASSIUM 3.6 mmol/L (3.5-5.1); TOT PROT 6.3 g/dl (6.4-8.2)
--- NOTE | 2018-11-27 10:49 | CONSULT ---
Consult - text type - Consultation Consultation Note: - History of Present Illness Initial Comments: The pt is a 73F w/ a history of HTN, a-fib (warfarin), HLD who presents for evaluation of altered mental status from [facility] on day of admission. The pt reportedly thought she was a member of the staff, was trying to assist her roommate in going to the bathroom and subsequently barricaded herself in the room. The pt denies pain or fall. She endorses dysuria. Denies fevers/chills, chest pain, trouble breathing, change in vision, WARREN, diarrhea, blood in her stool, or blood in her urine. Head CT completed - no acute infarct, age-related cerebral atrophy with extensive chronic microangiopathic changes and left cerebellar chronic encephalomalacia, grossly unchanged. UA suspicious for UTI, patient with Ceftriaxone. Awake and arousable and can tell me she's in the hospital but not able to tell me exactly the name. Does not know the date, does not appear to be at baseline mental status yet. Past History - Past Medical History Anemia: No Asthma: No Cancer: Yes Cardiac Disorders: Yes (MURMUR, ATRIAL FIBRILLATION) 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) COPD: No CHF: No Dementia: No Diabetes: No GI Disorders: No Disorders: No HTN: Yes Hypercholesterolemia: Yes Liver Disease: No Seizures: No Thyroid Disease: No - Surgical History Abdominal Surgery: Yes (hernia) Appendectomy: No Cardiac Surgery: No Cholecystectomy: No Lung Surgery: No Neurologic Surgery: No Orthopedic Surgery: No - Suicide/Smoking/Psychosocial Hx Smoking Status: No Smoking History: Unknown if ever smoked Number of Cigarettes Smoked Daily: 0 Hx Alcohol Use: No Drug/Substance Use Hx: No Substance Use Type: None Family: HTN Allergies Allergy/AdvReac Type Severity Reaction Status Date / Time Penicillins Allergy Rash Verified 11/26/18 01:34 Ambulatory Orders Atorvastatin Ca [Lipitor] 10 mg PO HS tablet 08/25/14 Quinapril HCl [Accupril -] 20 mg PO BID tablet 08/25/14 Apixaban [Eliquis] 5 mg PO BID 01/23/17 Sertraline HCl [Zoloft -] 150 mg PO DAILY 09/02/18 Metoprolol Succinate [Toprol XL -] 25 mg PO BID #60 tab.sr.24h 09/06/18 Acetaminophen [Tylenol .Regular Strength -] 650 mg PO Q6H PRN tablet 10/06/18 Multivitamins [Multivit ([facility] Formul[facility])] 1 tab PO DAILY tab 10/06/18 Potassium Chloride [K-Dur -] 20 meq PO DAILY #90 tablet.er 10/06/18 Nitrofurantoin Monohyd/M-Cryst [Macrobid -] 100 mg PO BID 11/26/18 Olanzapine [Zyprexa] 5 mg PO BID 11/26/18 Active Medications Acetaminophen (Tylenol -) 650 mg PO Q6H PRN PRN Reason: PAIN Apixaban (Eliquis -) 5 mg PO BID [facility] Last Admin: 11/26/18 21:53 Dose: 5 mg Atorvastatin Calcium (Lipitor -) 10 mg PO HS [facility] Last Admin: 11/26/18 21:53 Dose: 10 mg Ceftriaxone Sodium 1 gm/ (Dextrose) 50 mls @ 100 mls/hr IVPB AM [facility] Last Admin: 11/27/18 06:44 Dose: 100 mls/hr Metoprolol Succinate (Toprol Xl -) 25 mg PO BID [facility] Last Admin: 11/26/18 21:53 Dose: 25 mg Multivitamins/Minerals/Vitamin C (Tab-A-Vit -) 1 tab PO DAILY [facility] Last Admin: 11/26/18 11:43 Dose: 1 tab Olanzapine (Zyprexa -) 5 mg PO BID [facility] Last Admin: 11/26/18 21:53 Dose: 5 mg Potassium Chloride (K-Dur -) 20 meq PO DAILY [facility] Quinapril HCl (Accupril -) 20 mg PO BID [facility] Last Admin: 11/26/18 21:53 Dose: 20 mg Sertraline HCl (Zoloft -) 150 mg PO DAILY [facility] Last Admin: 11/26/18 11:43 Dose: 150 mg Review of Systems GENERAL/CONSTITUTIONAL: No fever or chills HEAD, EYES, EARS, NOSE AND THROAT: No change in vision. No change in hearing. No sore throat CARDIOVASCULAR: No chest pain or shortness of breath RESPIRATORY: Denies cough, hemoptysis GASTROINTESTINAL: No nausea, vomiting, diarrhea or constipation GENITOURINARY: +dysuria MUSCULOSKELETAL: No joint or muscle swelling or pain. No neck or back pain SKIN: No rash NEUROLOGIC: No WARREN, vertigo, loss of consciousness, or change in strength/ sensation ENDOCRINE: No increased thirst. No abnormal weight change HEMATOLOGIC/LYMPHATIC: No anemia, easy bleeding, or history of blood clots ALLERGIC/IMMUNOLOGIC: No hives or skin allergy *Physical Exam - Vital Signs Vital Signs Temperature 97.7 F 11/26/18 17:30 Pulse Rate 109 H 11/26/18 17:30 Respiratory Rate 18 11/26/18 17:58 Blood Pressure 135/77 11/26/18 17:30 O2 Sat by Pulse Oximetry (%) 97 11/26/18 21:00 - Physical Exam Comments: GENERAL: Awake, alert, and oriented to person/place, in no acute distress HEAD: No signs of trauma, normocephalic, atraumatic EYES: PERRLA, EOMI, sclera anicteric, conjunctiva clear ENT: Hearing grossly normal, nares patent, oropharynx clear without exudates. Moist mucosa LUNGS: No distress, speaks in full sentences, clear to auscultation bilaterally HEART: Regular rate and rhythm, normal S1 and S2, no murmurs appreciated, peripheral pulses normal and equal bilaterally ABDOMEN: Soft, suprapubic TTP w/o rebound or guarding, normoactive bowel sounds EXTREMITIES: Normal inspection, Normal range of motion, no edema. No clubbing or cyanosis NEUROLOGICAL: Cranial nerves II through XII grossly intact. Tangential speech, no focal sensorimotor deficits SKIN: BLE venous stasis changes, no open wounds observed, warm/dry CBCD WBC 4.5 K/mm3 (4.0-10.0) 11/27/18 07:20 RBC 3.50 M/mm3 (3.60-5.2) L 11/27/18 07:20 Hgb 10.6 GM/dL (10.7-15.3) L 11/27/18 07:20 Hct 31.5 % (32.4-45.2) L 11/27/18 07:20 MCV 90.0 fl (80-96) 11/27/18 07:20 MCHC 33.5 g/dl (32.0-36.0) 11/27/18 07:20 RDW 15.6 % (11.6-15.6) 11/27/18 07:20 Plt Count 150 K/MM3 (134-434) 11/27/18 07:20 MPV 7.9 fl (7.5-11.1) 11/27/18 07:20 CMP Sodium 146 mmol/L (136-145) H 11/27/18 07:20 Potassium 3.6 mmol/L (3.5-5.1) 11/27/18 07:20 Chloride 112 mmol/L (98-107) H 11/27/18 07:20 Carbon Dioxide 29 mmol/L (21-32) 11/27/18 07:20 Anion Gap 6 MMOL/L (8-16) L 11/27/18 07:20 BUN 13.0 mg/dL (7-18) 11/27/18 07:20 Creatinine 0.8 mg/dL (0.55-1.3) 11/27/18 07:20 Random Glucose 79 mg/dL (74-106) 11/27/18 07:20 Calcium 8.7 mg/dL (8.5-10.1) 11/27/18 07:20 Total Bilirubin 0.4 mg/dL (0.2-1) 11/27/18 07:20 AST 12 U/L (15-37) L 11/27/18 07:20 ALT 9 U/L (13-61) L 11/27/18 07:20 Alkaline Phosphatase 108 U/L (45-117) 11/27/18 07:20 Total Protein 6.3 g/dl (6.4-8.2) L 11/27/18 07:20 Albumin 2.7 g/dl (3.4-5.0) L 11/27/18 07:20 CARDIAC ENZYMES Troponin I < 0.02 ng/ml (0.00-0.05) 11/26/18 02:13 Diagnostics: Head CT - no acute infarct, age-related cerebral atrophy with extensive chronic microangiopathic changes and left cerebellar chronic encephalomalacia, grossly unchanged. Plan/Assessment The pt is a 73F w/ a history of HTN, a-fib (warfarin), HLD who presents for evaluation of altered mental status from [facility] on day of admission. The pt reportedly thought she was a member of the staff, was trying to assist her roommate in going to the bathroom and subsequently barricaded herself in the room. The pt denies pain or fall. She endorses dysuria. Denies fevers/chills, chest pain, trouble breathing, change in vision, WARREN, diarrhea, blood in her stool, or blood in her urine. Head CT completed - no acute infarct, age-related cerebral atrophy with extensive chronic microangiopathic changes and left cerebellar chronic encephalomalacia, grossly unchanged. UA suspicious for UTI, patient with Ceftriaxone. Awake and arousable and can tell me she's in the hospital but not able to tell me exactly the name. Does not know the date, does not appear to be at baseline mental status yet. Continue infectious mgmt, IV/Po hydration. Monitor BP, maintain normotensive range. Monitor Afib, cards followup , on warfarin. Frequent reorientation, continue to monitor mental status.
--- NOTE | 2018-11-27 12:02 | PN ---
Progress Note, Physician Chief Complaint: s/p ativan IM last night now sleepy (but arousable); was agitated during night, tried to get OOB; high risk falls unsteady - Current Medication List Current Medications: Active Medications Acetaminophen (Tylenol -) 650 mg PO Q6H PRN PRN Reason: PAIN Apixaban (Eliquis -) 5 mg PO BID [facility] Last Admin: 11/26/18 21:53 Dose: 5 mg Atorvastatin Calcium (Lipitor -) 10 mg PO HS [facility] Last Admin: 11/26/18 21:53 Dose: 10 mg Ceftriaxone Sodium 1 gm/ (Dextrose) 50 mls @ 100 mls/hr IVPB AM [facility] Last Admin: 11/27/18 06:44 Dose: 100 mls/hr Metoprolol Succinate (Toprol Xl -) 25 mg PO BID [facility] Last Admin: 11/26/18 21:53 Dose: 25 mg Multivitamins/Minerals/Vitamin C (Tab-A-Vit -) 1 tab PO DAILY [facility] Last Admin: 11/26/18 11:43 Dose: 1 tab Olanzapine (Zyprexa -) 5 mg PO BID [facility] Last Admin: 11/26/18 21:53 Dose: 5 mg Potassium Chloride (K-Dur -) 20 meq PO DAILY [facility] Quinapril HCl (Accupril -) 20 mg PO BID [facility] Last Admin: 11/26/18 21:53 Dose: 20 mg Sertraline HCl (Zoloft -) 150 mg PO DAILY [facility] Last Admin: 11/26/18 11:43 Dose: 150 mg - Objective Vital Signs: Vital Signs Temperature 97.7 F 11/26/18 17:30 Pulse Rate 109 H 11/26/18 17:30 Respiratory Rate 18 11/26/18 17:58 Blood Pressure 135/77 11/26/18 17:30 O2 Sat by Pulse Oximetry (%) 97 11/26/18 21:00 Constitutional: Yes: No Distress, Calm Eyes: Yes: Conjunctiva Clear HENT: Yes: Atraumatic Neck: Yes: Supple Cardiovascular: No: Regular Rate and Rhythm Respiratory: Yes: CTA Bilaterally Gastrointestinal: Yes: Soft. No: Tenderness Genitourinary: No: Hematuria Musculoskeletal: No: Joint Stiffness, Joint Swelling Extremities: No: Cold, Cool, Cyanosis Edema: No Integumentary: No: Rash, Venous Stasis Changes Neurological: Yes: Other (sleepy but arousable) Psychiatric: No: Agitated Labs: CBC, BMP 11/27/18 07:20 11/27/18 07:20 INR, PTT INR 1.42 (0.83-1.09) H 11/26/18 02:13 - ....Imaging Other: Report Reviewed Assessment/Plan The pt is a 73F w/ a history of HTN, a-fib (warfarin), CVA nonc/w meds, HLD admitted from [facility] with Changes MS, UTI; also agitation. iv ceftriaxone neurology and psych eval ativan prn; vest for safety fall pfx, decubs d/w pt and staff
[2018-11-27] MEDS: OLANZapine 5 MG TABLET PO SCH ×2 (12:26→21:06)
[2018-11-27] MEDS: POTASSIUM CHLORIDE TABS 20 MEQ TABLET.ER (FP) PO SCH (12:26)
[2018-11-27] MEDS: SERTRALINE HCL 50 MG TABLET (FP) PO SCH (12:26)
[2018-11-27] MEDS: MULTIVITAMINS (DAILY MVI) TABLET (FP) PO SCH (12:26)
[2018-11-27] MEDS: QUINAPRIL HCL 20 MG TABLET (FP) PO SCH ×2 (12:26→21:06)
[2018-11-27] MEDS: metoPROLOL SUCCINATE 25 MG TAB.SR.24H (FP) PO SCH ×2 (12:26→21:06)
[2018-11-27] MEDS: APIXABAN 5 MG TABLET PO SCH ×2 (12:28→21:06)
[2018-11-27] MEDS: ATORVASTATIN CA 10 MG TABLET (FP) PO SCH (21:06)
[2018-11-28] MEDS ORDERED: DEXTROSE 5%-WATER - 50 ML IVPB ONE (08:00)
[2018-11-28] MEDS ORDERED: cefTRIAXone SODIUM 1 GM VIAL ONE (08:00)
[2018-11-28] MEDS: CEFTRIAXONE 1 GM in DEXTROSE 5%-WATER - 50 ML IVPB SCH (08:08)
--- NOTE | 2018-11-28 10:01 | PN ---
Progress Note, Physician Chief Complaint: sleepy this am but wakes up later during the day, ate well yesterday d/w staff did not receive ativan within 24h and no vest needed per staff at this point - Current Medication List Current Medications: Active Medications Acetaminophen (Tylenol -) 650 mg PO Q6H PRN PRN Reason: PAIN Apixaban (Eliquis -) 5 mg PO BID [facility] Last Admin: 11/27/18 21:06 Dose: 5 mg Atorvastatin Calcium (Lipitor -) 10 mg PO HS [facility] Last Admin: 11/27/18 21:06 Dose: 10 mg Ceftriaxone Sodium 1 gm/ (Dextrose) 50 mls @ 100 mls/hr IVPB AM [facility] Last Admin: 11/28/18 08:08 Dose: 100 mls/hr Metoprolol Succinate (Toprol Xl -) 25 mg PO BID [facility] Last Admin: 11/27/18 21:06 Dose: 25 mg Multivitamins/Minerals/Vitamin C (Tab-A-Vit -) 1 tab PO DAILY [facility] Last Admin: 11/27/18 12:26 Dose: 1 tab Olanzapine (Zyprexa -) 5 mg PO BID [facility] Last Admin: 11/27/18 21:06 Dose: 5 mg Potassium Chloride (K-Dur -) 20 meq PO DAILY [facility] Last Admin: 11/27/18 12:26 Dose: 20 meq Quinapril HCl (Accupril -) 20 mg PO BID [facility] Last Admin: 11/27/18 21:06 Dose: 20 mg Sertraline HCl (Zoloft -) 150 mg PO DAILY [facility] Last Admin: 11/27/18 12:26 Dose: 150 mg - Objective Vital Signs: Vital Signs Temperature 98.0 F 11/28/18 06:00 Pulse Rate 99 H 11/28/18 06:00 Respiratory Rate 20 11/28/18 06:00 Blood Pressure 147/86 11/28/18 06:00 O2 Sat by Pulse Oximetry (%) 98 11/27/18 21:00 Constitutional: Yes: No Distress, Calm Eyes: Yes: Conjunctiva Clear HENT: Yes: Atraumatic Neck: Yes: Supple Cardiovascular: Yes: Regular Rate and Rhythm Respiratory: Yes: CTA Bilaterally Gastrointestinal: Yes: Soft. No: Tenderness Genitourinary: No: Hematuria Musculoskeletal: No: Joint Stiffness, Joint Swelling Extremities: No: Cold, Cool, Cyanosis Edema: No Integumentary: No: Rash, Venous Stasis Changes Neurological: Yes: Other (sleepy but arousable) Psychiatric: No: Agitated Labs: CBC, BMP 11/27/18 07:20 11/27/18 07:20 INR, PTT INR 1.42 (0.83-1.09) H 11/26/18 02:13 Assessment/Plan The pt is a 73F w/ a history of HTN, a-fib (warfarin), CVA nonc/w meds, HLD admitted from [facility] with Changes MS, UTI; also agitation. iv ceftriaxone neurology and psych f/u ativan stopped; vest for safety if needed (not now) fall pfx, decubs d/w pt and staff called pt's
[2018-11-28] MEDS: MULTIVITAMINS (DAILY MVI) TABLET (FP) PO SCH (11:02)
[2018-11-28] MEDS: SERTRALINE HCL 50 MG TABLET (FP) PO SCH (11:02)
[2018-11-28] MEDS: POTASSIUM CHLORIDE TABS 20 MEQ TABLET.ER (FP) PO SCH (11:04)
[2018-11-28] MEDS: OLANZapine 5 MG TABLET PO SCH ×2 (11:04→22:38)
[2018-11-28] MEDS: APIXABAN 5 MG TABLET PO SCH ×2 (11:04→22:38)
[2018-11-28] MEDS: metoPROLOL SUCCINATE 25 MG TAB.SR.24H (FP) PO SCH ×2 (11:04→22:38)
[2018-11-28] MEDS: QUINAPRIL HCL 20 MG TABLET (FP) PO SCH ×2 (11:05→22:38)
--- NOTE | 2018-11-28 11:22 | PN ---
Progress Note (short form) - Note Progress Note: Neurology - History of Present Illness Initial Comments: The pt is a 73F w/ a history of HTN, a-fib (warfarin), HLD who presents for evaluation of altered mental status from [facility] on day of admission. The pt reportedly thought she was a member of the staff, was trying to assist her roommate in going to the bathroom and subsequently barricaded herself in the room. The pt denies pain or fall. She endorses dysuria. Denies fevers/chills, chest pain, trouble breathing, change in vision, WARREN, diarrhea, blood in her stool, or blood in her urine. Head CT completed - no acute infarct, age-related cerebral atrophy with extensive chronic microangiopathic changes and left cerebellar chronic encephalomalacia, grossly unchanged. UA suspicious for UTI, patient with Ceftriaxone. Awake and arousable and can tell me she's in the hospital and today can tell me the name. She knows the year and at first said Dec but corrected to November after that. Less fatigued appearing. May have been due to Ativan which is likely out of her system now. Allergies Allergy/AdvReac Type Severity Reaction Status Date / Time Penicillins Allergy Rash Verified 11/26/18 01:34 Active Medications Acetaminophen (Tylenol -) 650 mg PO Q6H PRN PRN Reason: PAIN Apixaban (Eliquis -) 5 mg PO BID [facility] Last Admin: 11/28/18 11:04 Dose: 5 mg Atorvastatin Calcium (Lipitor -) 10 mg PO HS [facility] Last Admin: 11/27/18 21:06 Dose: 10 mg Ceftriaxone Sodium 1 gm/ (Dextrose) 50 mls @ 100 mls/hr IVPB AM [facility] Last Admin: 11/28/18 08:08 Dose: 100 mls/hr Metoprolol Succinate (Toprol Xl -) 25 mg PO BID [facility] Last Admin: 11/28/18 11:04 Dose: 25 mg Multivitamins/Minerals/Vitamin C (Tab-A-Vit -) 1 tab PO DAILY [facility] Last Admin: 11/28/18 11:02 Dose: 1 tab Olanzapine (Zyprexa -) 5 mg PO BID [facility] Last Admin: 11/28/18 11:04 Dose: 5 mg Potassium Chloride (K-Dur -) 20 meq PO DAILY [facility] Last Admin: 11/28/18 11:04 Dose: 20 meq Quinapril HCl (Accupril -) 20 mg PO BID [facility] Last Admin: 11/28/18 11:05 Dose: 20 mg Sertraline HCl (Zoloft -) 150 mg PO DAILY [facility] Last Admin: 11/28/18 11:02 Dose: 150 mg *Physical Exam - Vital Signs Vital Signs Period Temp Pulse Resp BP Sys/Jacinto Pulse Ox Last 24 Hr 98.0 F-98.3 F 94-99 18-20 128-147/70-86 98 - Physical Exam Comments: GENERAL: Awake, alert, and oriented to person/place, in no acute distress HEAD: No signs of trauma, normocephalic, atraumatic EYES: PERRLA, EOMI, sclera anicteric, conjunctiva clear ENT: Hearing grossly normal, nares patent, oropharynx clear without exudates. Moist mucosa LUNGS: No distress, speaks in full sentences, clear to auscultation bilaterally HEART: Regular rate and rhythm, normal S1 and S2, no murmurs appreciated, peripheral pulses normal and equal bilaterally ABDOMEN: Soft, suprapubic TTP w/o rebound or guarding, normoactive bowel sounds EXTREMITIES: Normal inspection, Normal range of motion, no edema. No clubbing or cyanosis NEUROLOGICAL: Cranial nerves II through XII grossly intact. Tangential speech, no focal sensorimotor deficits SKIN: BLE venous stasis changes, no open wounds observed, warm/dry CBCD WBC 4.5 K/mm3 (4.0-10.0) 11/27/18 07:20 RBC 3.50 M/mm3 (3.60-5.2) L 11/27/18 07:20 Hgb 10.6 GM/dL (10.7-15.3) L 11/27/18 07:20 Hct 31.5 % (32.4-45.2) L 11/27/18 07:20 MCV 90.0 fl (80-96) 11/27/18 07:20 MCHC 33.5 g/dl (32.0-36.0) 11/27/18 07:20 RDW 15.6 % (11.6-15.6) 11/27/18 07:20 Plt Count 150 K/MM3 (134-434) 11/27/18 07:20 MPV 7.9 fl (7.5-11.1) 11/27/18 07:20 CMP Sodium 146 mmol/L (136-145) H 11/27/18 07:20 Potassium 3.6 mmol/L (3.5-5.1) 11/27/18 07:20 Chloride 112 mmol/L (98-107) H 11/27/18 07:20 Carbon Dioxide 29 mmol/L (21-32) 11/27/18 07:20 Anion Gap 6 MMOL/L (8-16) L 11/27/18 07:20 BUN 13.0 mg/dL (7-18) 11/27/18 07:20 Creatinine 0.8 mg/dL (0.55-1.3) 11/27/18 07:20 Calcium 8.7 mg/dL (8.5-10.1) 11/27/18 07:20 Total Bilirubin 0.4 mg/dL (0.2-1) 11/27/18 07:20 AST 12 U/L (15-37) L 11/27/18 07:20 ALT 9 U/L (13-61) L 11/27/18 07:20 Alkaline Phosphatase 108 U/L (45-117) 11/27/18 07:20 Total Protein 6.3 g/dl (6.4-8.2) L 11/27/18 07:20 Albumin 2.7 g/dl (3.4-5.0) L 11/27/18 07:20 Diagnostics: Head CT - no acute infarct, age-related cerebral atrophy with extensive chronic microangiopathic changes and left cerebellar chronic encephalomalacia, grossly unchanged. Plan/Assessment The pt is a 73F w/ a history of HTN, a-fib (warfarin), HLD who presents for evaluation of altered mental status from [facility] on day of admission. The pt reportedly thought she was a member of the staff, was trying to assist her roommate in going to the bathroom and subsequently barricaded herself in the room. The pt denies pain or fall. She endorses dysuria. Denies fevers/chills, chest pain, trouble breathing, change in vision, WARREN, diarrhea, blood in her stool, or blood in her urine. Head CT completed - no acute infarct, age-related cerebral atrophy with extensive chronic microangiopathic changes and left cerebellar chronic encephalomalacia, grossly unchanged. UA suspicious for UTI, patient with Ceftriaxone. Awake and arousable and can tell me she's in the hospital and today can tell me the name. She knows the year and at first said Dec but corrected to November after that. Less fatigued appearing. May have been due to Ativan which is likely out of her system now. Continue infectious mgmt, IV/Po hydration. Monitor BP, maintain normotensive range. Monitor Afib, cards followup, on warfarin. Frequent reorientation, mental status improving, seems close to baseline.
[2018-11-28] MEDS: ATORVASTATIN CA 10 MG TABLET (FP) PO SCH (22:38)
[2018-11-29] MEDS ORDERED: DEXTROSE 5%-WATER - 100 ML IVPB ONE (06:35)
[2018-11-29] MEDS ORDERED: cefTRIAXone SODIUM 1 GM VIAL ONE (06:35)
[2018-11-29] MEDS: CEFTRIAXONE 1 GM in DEXTROSE 5%-WATER - 50 ML IVPB SCH (06:37)
[2018-11-29 07:44] LABS: EOS % 3.4 % (0-4.5); HEMATOCRIT 32.7 % (32.4-45.2); HEMOGLOBIN 10.9 GM/dL (10.7-15.3); LYMPH % 28.2 % (8-40); MCH 30.1 pg (25.7-33.7); MCHC 33.4 g/dl (32.0-36.0); MEAN CELL VOLUME 90.1 fl (80-96); MEAN PLT VOLUME 7.9 fl (7.5-11.1); MONO % 9.3 % (3.8-10.2); NEUT % 57.1 % (42.8-82.8); PLATELET COUNT 170 K/MM3 (134-434); RBC 3.63 M/mm3 (3.60-5.2); RDW 15.4 % (11.6-15.6); WHITE BLOOD COUNT 4.8 K/mm3 (4.0-10.0)
[2018-11-29 07:46] LABS: ALBUMIN 2.6 g/dl (3.4-5.0); BILIRUBIN,TOTAL 0.4 mg/dL (0.2-1); BLOOD UREA NITROGEN 15.7 mg/dL (7-18); CALCIUM 8.8 mg/dL (8.5-10.1); CREATININE 0.8 mg/dL (0.55-1.3); POTASSIUM 3.8 mmol/L (3.5-5.1); TOT PROT 6.2 g/dl (6.4-8.2)
--- NOTE | 2018-11-29 09:49 | PN ---
Progress Note (short form) - Note Progress Note: Neurology - History of Present Illness Initial Comments: The pt is a 73F w/ a history of HTN, a-fib (warfarin), HLD who presents for evaluation of altered mental status from [facility] on day of admission. The pt reportedly thought she was a member of the staff, was trying to assist her roommate in going to the bathroom and subsequently barricaded herself in the room. The pt denies pain or fall. She endorses dysuria. Denies fevers/chills, chest pain, trouble breathing, change in vision, WARREN, diarrhea, blood in her stool, or blood in her urine. Head CT completed - no acute infarct, age-related cerebral atrophy with extensive chronic microangiopathic changes and left cerebellar chronic encephalomalacia, grossly unchanged. UA suspicious for UTI, patient with Ceftriaxone. Awake and arousable and can tell me she's in the hospital and today can tell me the name. She knows the year and at first said Dec but corrected to November after that. Less fatigued appearing. May have been due to Ativan which is likely out of her system now. Remains neurologically intact and without complaint this morning. Allergies Allergy/AdvReac Type Severity Reaction Status Date / Time Penicillins Allergy Rash Verified 11/26/18 01:34 Active Medications Acetaminophen (Tylenol -) 650 mg PO Q6H PRN PRN Reason: PAIN Apixaban (Eliquis -) 5 mg PO BID [facility] Last Admin: 11/28/18 22:38 Dose: 5 mg Atorvastatin Calcium (Lipitor -) 10 mg PO HS [facility] Last Admin: 11/28/18 22:38 Dose: 10 mg Ceftriaxone Sodium 1 gm/ (Dextrose) 50 mls @ 100 mls/hr IVPB AM [facility] Last Admin: 11/29/18 06:37 Dose: 100 mls/hr Metoprolol Succinate (Toprol Xl -) 25 mg PO BID [facility] Last Admin: 11/28/18 22:38 Dose: 25 mg Multivitamins/Minerals/Vitamin C (Tab-A-Vit -) 1 tab PO DAILY [facility] Last Admin: 11/28/18 11:02 Dose: 1 tab Olanzapine (Zyprexa -) 5 mg PO BID [facility] Last Admin: 11/28/18 22:38 Dose: 5 mg Potassium Chloride (K-Dur -) 20 meq PO DAILY [facility] Last Admin: 11/28/18 11:04 Dose: 20 meq Quinapril HCl (Accupril -) 20 mg PO BID [facility] Last Admin: 11/28/18 22:38 Dose: 20 mg Sertraline HCl (Zoloft -) 150 mg PO DAILY [facility] Last Admin: 11/28/18 11:02 Dose: 150 mg *Physical Exam Vital Signs Period Temp Pulse Resp BP Sys/Jacinto Pulse Ox Last 24 Hr 97.9 F-98.7 F 81-111 16-77 124-155/66-83 95 - Physical Exam Comments: GENERAL: Awake, alert, and oriented to person/place, in no acute distress HEAD: No signs of trauma, normocephalic, atraumatic EYES: PERRLA, EOMI, sclera anicteric, conjunctiva clear ENT: Hearing grossly normal, nares patent, oropharynx clear without exudates. Moist mucosa LUNGS: No distress, speaks in full sentences, clear to auscultation bilaterally HEART: Regular rate and rhythm, normal S1 and S2, no murmurs appreciated, peripheral pulses normal and equal bilaterally ABDOMEN: Soft, suprapubic TTP w/o rebound or guarding, normoactive bowel sounds EXTREMITIES: Normal inspection, Normal range of motion, no edema. No clubbing or cyanosis NEUROLOGICAL: Cranial nerves II through XII grossly intact. Tangential speech, no focal sensorimotor deficits SKIN: BLE venous stasis changes, no open wounds observed, warm/dry CBCD WBC 4.8 K/mm3 (4.0-10.0) 11/29/18 06:10 RBC 3.63 M/mm3 (3.60-5.2) 11/29/18 06:10 Hgb 10.9 GM/dL (10.7-15.3) 11/29/18 06:10 Hct 32.7 % (32.4-45.2) 11/29/18 06:10 MCV 90.1 fl (80-96) 11/29/18 06:10 MCHC 33.4 g/dl (32.0-36.0) 11/29/18 06:10 RDW 15.4 % (11.6-15.6) 11/29/18 06:10 Plt Count 170 K/MM3 (134-434) 11/29/18 06:10 MPV 7.9 fl (7.5-11.1) 11/29/18 06:10 CMP Sodium 147 mmol/L (136-145) H 11/29/18 06:10 Potassium 3.8 mmol/L (3.5-5.1) 11/29/18 06:10 Chloride 113 mmol/L (98-107) H 11/29/18 06:10 Carbon Dioxide 28 mmol/L (21-32) 11/29/18 06:10 Anion Gap 5 MMOL/L (8-16) L 11/29/18 06:10 BUN 15.7 mg/dL (7-18) 11/29/18 06:10 Creatinine 0.8 mg/dL (0.55-1.3) 11/29/18 06:10 Random Glucose 80 mg/dL (74-106) 11/29/18 06:10 Calcium 8.8 mg/dL (8.5-10.1) 11/29/18 06:10 Total Bilirubin 0.4 mg/dL (0.2-1) 11/29/18 06:10 AST 16 U/L (15-37) 11/29/18 06:10 ALT 11 U/L (13-61) L 11/29/18 06:10 Alkaline Phosphatase 100 U/L (45-117) 11/29/18 06:10 Total Protein 6.2 g/dl (6.4-8.2) L 11/29/18 06:10 Albumin 2.6 g/dl (3.4-5.0) L 11/29/18 06:10 CARDIAC ENZYMES Troponin I < 0.02 ng/ml (0.00-0.05) 11/26/18 02:13 Diagnostics: Head CT - no acute infarct, age-related cerebral atrophy with extensive chronic microangiopathic changes and left cerebellar chronic encephalomalacia, grossly unchanged. Plan/Assessment The pt is a 73F w/ a history of HTN, a-fib (warfarin), HLD who presents for evaluation of altered mental status from [facility] on day of admission. The pt reportedly thought she was a member of the staff, was trying to assist her roommate in going to the bathroom and subsequently barricaded herself in the room. The pt denies pain or fall. She endorses dysuria. Denies fevers/chills, chest pain, trouble breathing, change in vision, WARREN, diarrhea, blood in her stool, or blood in her urine. Head CT completed - no acute infarct, age-related cerebral atrophy with extensive chronic microangiopathic changes and left cerebellar chronic encephalomalacia, grossly unchanged. UA suspicious for UTI, patient with Ceftriaxone. Awake and arousable and can tell me she's in the hospital and today can tell me the name. She knows the year and at first said Dec but corrected to November after that. Less fatigued appearing. May have been due to Ativan which is likely out of her system now. Continue infectious mgmt, IV/Po hydration. Monitor BP, maintain normotensive range. Monitor Afib, cards followup, on warfarin. Frequent reorientation, mental status improving, seems at or close to baseline. neurologically stable at this time.
[2018-11-29] MEDS: OLANZapine 5 MG TABLET PO SCH ×2 (10:35→21:46)
[2018-11-29] MEDS: QUINAPRIL HCL 20 MG TABLET (FP) PO SCH ×2 (10:35→21:45)
[2018-11-29] MEDS: metoPROLOL SUCCINATE 25 MG TAB.SR.24H (FP) PO SCH ×2 (10:35→21:46)
[2018-11-29] MEDS: APIXABAN 5 MG TABLET PO SCH ×2 (10:35→21:46)
[2018-11-29] MEDS: SERTRALINE HCL 50 MG TABLET (FP) PO SCH (10:35)
[2018-11-29] MEDS: POTASSIUM CHLORIDE TABS 20 MEQ TABLET.ER (FP) PO SCH (10:35)
[2018-11-29] MEDS: MULTIVITAMINS (DAILY MVI) TABLET (FP) PO SCH (10:35)
--- NOTE | 2018-11-29 11:34 | DS ---
Physical Examination Vital Signs: Vital Signs Temperature 98.6 F 11/29/18 05:29 Pulse Rate 81 11/29/18 05:29 Respiratory Rate 18 11/29/18 05:29 Blood Pressure 125/66 11/29/18 05:29 O2 Sat by Pulse Oximetry (%) 95 11/28/18 21:00 Findings/Remarks: awake alert in good spirits slept OK ate well as d/w pt's son and yesterday, will DC to NH po ATB f/u as advised Constitutional: Yes: No Distress, Calm Eyes: Yes: Conjunctiva Clear HENT: Yes: Atraumatic Neck: Yes: Supple Cardiovascular: No: Regular Rate and Rhythm Respiratory: Yes: CTA Bilaterally Gastrointestinal: Yes: Soft. No: Tenderness Renal/: No: CVA Tenderness - Left, CVA Tenderness - Right, Hematuria Musculoskeletal: No: Joint Swelling, Muscle Pain Extremities: No: Cold, Cool, Cyanosis Edema: No Integumentary: No: Rash Neurological: Yes: WNL, Alert, Oriented (x2) ...Motor Strength: WNL Psychiatric: Yes: WNL, Alert, Oriented (x2). No: Agitated, Suicidal Ideation Labs: CBC, BMP 11/29/18 06:10 11/29/18 06:10 Discharge Summary Reason For Visit: ALTERED MENTAL STATUS Current Active Problems Altered mental status (Acute) Atrial fibrillation (Acute) Procedures: Principal: 73 YOF ASHD AFib CVA HTN admitted from NH/SNF with changes MS Other Procedures: IV ATB; seen by neurology and psychiatry;. UCx <10K GNR Hospital Course: improved with above; DC to NH po ATB x 3 more days; f/u as advised dw pt and family, d/w staff Condition: Improved - Instructions Diet, Activity, Other Instructions: DC to SNF / NH for PT rehab; po antibiotics for UTI x 3 days; good po hydration f/u PCP, cardiology, neurology and psychiatry falls decubs prophylaxis RTER if worse or recurrent c/o Referrals: Yee Sood [Staff Physician] - Disposition: [facility] - Home Medications Comprehensive Discharge Medication List: Ambulatory Orders Atorvastatin Ca [Lipitor] 10 mg PO HS tablet 08/25/14 Quinapril HCl [Accupril -] 20 mg PO BID tablet 08/25/14 Apixaban [Eliquis] 5 mg PO BID 01/23/17 Sertraline HCl [Zoloft -] 150 mg PO DAILY 09/02/18 Metoprolol Succinate [Toprol XL -] 25 mg PO BID #60 tab.sr.24h 09/06/18 Acetaminophen [Tylenol .Regular Strength -] 650 mg PO Q6H PRN tablet 10/06/18 Multivitamins [Multivit ([facility] Formulary)] 1 tab PO DAILY tab 10/06/18 Potassium Chloride [K-Dur -] 20 meq PO DAILY #90 tablet.er 10/06/18 Olanzapine [Zyprexa] 5 mg PO BID 11/26/18 Cephalexin Monohydrate [Keflex -] 500 mg PO BID 3 Days #6 capsule 11/29/18
[2018-11-29] MEDS: ATORVASTATIN CA 10 MG TABLET (FP) PO SCH (21:46)
[2018-11-29] MEDS ORDERED: LORazepam 2 MG/ML SDV VIAL IM ONE (22:25)
[2018-11-30] MEDS ORDERED: cefTRIAXone SODIUM 1 GM VIAL ONE (06:17)
[2018-11-30] MEDS ORDERED: DEXTROSE 5%-WATER - 50 ML IVPB ONE (06:17)
[2018-11-30] MEDS: CEFTRIAXONE 1 GM in DEXTROSE 5%-WATER - 50 ML IVPB SCH (06:26)
--- NOTE | 2018-11-30 09:09 | PN ---
Progress Note, Physician Chief Complaint: awake alert NAD VSS afebrile in good spirits now but per staff pt was upset yesterday and last night; her visited her and she was agitated per staff ; PT erwinal done; OK to RT NH / SNF today - Current Medication List Current Medications: Active Medications Acetaminophen (Tylenol -) 650 mg PO Q6H PRN PRN Reason: PAIN Apixaban (Eliquis -) 5 mg PO BID [facility] Last Admin: 11/29/18 21:46 Dose: 5 mg Atorvastatin Calcium (Lipitor -) 10 mg PO HS [facility] Last Admin: 11/29/18 21:46 Dose: 10 mg Ceftriaxone Sodium 1 gm/ (Dextrose) 50 mls @ 100 mls/hr IVPB AM [facility] Last Admin: 11/30/18 06:26 Dose: 100 mls/hr Metoprolol Succinate (Toprol Xl -) 25 mg PO BID [facility] Last Admin: 11/29/18 21:46 Dose: 25 mg Multivitamins/Minerals/Vitamin C (Tab-A-Vit -) 1 tab PO DAILY [facility] Last Admin: 11/29/18 10:35 Dose: 1 tab Olanzapine (Zyprexa -) 5 mg PO BID [facility] Last Admin: 11/29/18 21:46 Dose: 5 mg Potassium Chloride (K-Dur -) 20 meq PO DAILY [facility] Last Admin: 11/29/18 10:35 Dose: 20 meq Quinapril HCl (Accupril -) 20 mg PO BID [facility] Last Admin: 11/29/18 21:45 Dose: 20 mg Sertraline HCl (Zoloft -) 150 mg PO DAILY [facility] Last Admin: 11/29/18 10:35 Dose: 150 mg - Objective Vital Signs: Vital Signs Temperature 97.6 F 11/30/18 05:30 Pulse Rate 92 H 11/30/18 05:30 Respiratory Rate 20 11/30/18 05:30 Blood Pressure 149/88 11/30/18 05:30 O2 Sat by Pulse Oximetry (%) 96 11/29/18 21:00 Constitutional: Yes: No Distress, Calm Eyes: Yes: Conjunctiva Clear HENT: Yes: Atraumatic Neck: Yes: Supple Cardiovascular: No: Regular Rate and Rhythm Respiratory: Yes: CTA Bilaterally Gastrointestinal: Yes: Soft. No: Tenderness Genitourinary: No: Hematuria Musculoskeletal: No: Joint Stiffness, Joint Swelling Extremities: Yes: WNL Edema: No Neurological: Yes: WNL, Alert, Oriented ...Motor Strength: WNL Psychiatric: Yes: WNL, Alert, Oriented. No: Agitated, Suicidal Ideation Labs: CBC, BMP 11/29/18 06:10 11/29/18 06:10 INR, PTT INR 1.42 (0.83-1.09) H 11/26/18 02:13 - ....Imaging Other: Report Reviewed Assessment/Plan The pt is a 73F w/ a history of HTN, a-fib (warfarin), CVA nonc/w meds, HLD admitted from [facility] with Changes MS, UTI; agitation. iv ceftriaxone, OK to switch to po neurology and psych f/u fall pfx, decubs pfx transfer to SNF for PT; d/w pt and staff
--- NOTE | 2018-11-30 09:36 | PN ---
Progress Note (short form) - Note Progress Note: Neurology - History of Present Illness Initial Comments: The pt is a 73F w/ a history of HTN, a-fib (warfarin), HLD who presents for evaluation of altered mental status from [facility] on day of admission. The pt reportedly thought she was a member of the staff, was trying to assist her roommate in going to the bathroom and subsequently barricaded herself in the room. The pt denies pain or fall. She endorses dysuria. Denies fevers/chills, chest pain, trouble breathing, change in vision, WARREN, diarrhea, blood in her stool, or blood in her urine. Head CT completed - no acute infarct, age-related cerebral atrophy with extensive chronic microangiopathic changes and left cerebellar chronic encephalomalacia, grossly unchanged. UA suspicious for UTI, patient with Ceftriaxone. somnolent but arousable and can tell me she's in the hospital and today can tell me the name danny. She knows the year and and knows its November. May have been due to Ativan which is likely out of her system now. Remains neurologically intact and without complaint this morning. Possibly for discharge planning, defer to primary care physician. Allergies Allergy/AdvReac Type Severity Reaction Status Date / Time Penicillins Allergy Rash Verified 11/26/18 01:34 Active Medications Acetaminophen (Tylenol -) 650 mg PO Q6H PRN PRN Reason: PAIN Apixaban (Eliquis -) 5 mg PO BID [facility] Last Admin: 11/29/18 21:46 Dose: 5 mg Atorvastatin Calcium (Lipitor -) 10 mg PO HS [facility] Last Admin: 11/29/18 21:46 Dose: 10 mg Ceftriaxone Sodium 1 gm/ (Dextrose) 50 mls @ 100 mls/hr IVPB AM [facility] Last Admin: 11/30/18 06:26 Dose: 100 mls/hr Metoprolol Succinate (Toprol Xl -) 25 mg PO BID [facility] Last Admin: 11/29/18 21:46 Dose: 25 mg Multivitamins/Minerals/Vitamin C (Tab-A-Vit -) 1 tab PO DAILY [facility] Last Admin: 11/29/18 10:35 Dose: 1 tab Olanzapine (Zyprexa -) 5 mg PO BID [facility] Last Admin: 11/29/18 21:46 Dose: 5 mg Potassium Chloride (K-Dur -) 20 meq PO DAILY [facility] Last Admin: 11/29/18 10:35 Dose: 20 meq Quinapril HCl (Accupril -) 20 mg PO BID [facility] Last Admin: 11/29/18 21:45 Dose: 20 mg Sertraline HCl (Zoloft -) 150 mg PO DAILY [facility] Last Admin: 11/29/18 10:35 Dose: 150 mg *Physical Exam Vital Signs Period Temp Pulse Resp BP Sys/Jacinto Pulse Ox Last 24 Hr 97.6 F-99.2 F 86-105 18-20 131-154/71-94 96 GENERAL: Awake, alert, and oriented to person/place, in no acute distress HEAD: No signs of trauma, normocephalic, atraumatic EYES: PERRLA, EOMI, sclera anicteric, conjunctiva clear ENT: Hearing grossly normal, nares patent, oropharynx clear without exudates. Moist mucosa LUNGS: No distress, speaks in full sentences, clear to auscultation bilaterally HEART: Regular rate and rhythm, normal S1 and S2, no murmurs appreciated, peripheral pulses normal and equal bilaterally ABDOMEN: Soft, suprapubic TTP w/o rebound or guarding, normoactive bowel sounds EXTREMITIES: Normal inspection, Normal range of motion, no edema. No clubbing or cyanosis NEUROLOGICAL: Cranial nerves II through XII grossly intact. Tangential speech, no focal sensorimotor deficits SKIN: BLE venous stasis changes, no open wounds observed, warm/dry CBCD WBC 4.8 K/mm3 (4.0-10.0) 11/29/18 06:10 RBC 3.63 M/mm3 (3.60-5.2) 11/29/18 06:10 Hgb 10.9 GM/dL (10.7-15.3) 11/29/18 06:10 Hct 32.7 % (32.4-45.2) 11/29/18 06:10 MCV 90.1 fl (80-96) 11/29/18 06:10 MCHC 33.4 g/dl (32.0-36.0) 11/29/18 06:10 RDW 15.4 % (11.6-15.6) 11/29/18 06:10 Plt Count 170 K/MM3 (134-434) 11/29/18 06:10 MPV 7.9 fl (7.5-11.1) 11/29/18 06:10 CMP Sodium 147 mmol/L (136-145) H 11/29/18 06:10 Potassium 3.8 mmol/L (3.5-5.1) 11/29/18 06:10 Chloride 113 mmol/L (98-107) H 11/29/18 06:10 Carbon Dioxide 28 mmol/L (21-32) 11/29/18 06:10 Anion Gap 5 MMOL/L (8-16) L 11/29/18 06:10 BUN 15.7 mg/dL (7-18) 11/29/18 06:10 Creatinine 0.8 mg/dL (0.55-1.3) 11/29/18 06:10 Random Glucose 80 mg/dL (74-106) 11/29/18 06:10 Calcium 8.8 mg/dL (8.5-10.1) 11/29/18 06:10 Total Bilirubin 0.4 mg/dL (0.2-1) 11/29/18 06:10 AST 16 U/L (15-37) 11/29/18 06:10 ALT 11 U/L (13-61) L 11/29/18 06:10 Alkaline Phosphatase 100 U/L (45-117) 11/29/18 06:10 Total Protein 6.2 g/dl (6.4-8.2) L 11/29/18 06:10 Albumin 2.6 g/dl (3.4-5.0) L 11/29/18 06:10 CARDIAC ENZYMES Troponin I < 0.02 ng/ml (0.00-0.05) 11/26/18 02:13 Diagnostics: Head CT - no acute infarct, age-related cerebral atrophy with extensive chronic microangiopathic changes and left cerebellar chronic encephalomalacia, grossly unchanged. Plan/Assessment The pt is a 73F w/ a history of HTN, a-fib (warfarin), HLD who presents for evaluation of altered mental status from [facility] on day of admission. The pt reportedly thought she was a member of the staff, was trying to assist her roommate in going to the bathroom and subsequently barricaded herself in the room. The pt denies pain or fall. She endorses dysuria. Denies fevers/chills, chest pain, trouble breathing, change in vision, WARREN, diarrhea, blood in her stool, or blood in her urine. Head CT completed - no acute infarct, age-related cerebral atrophy with extensive chronic microangiopathic changes and left cerebellar chronic encephalomalacia, grossly unchanged. UA suspicious for UTI, patient with Ceftriaxone. Awake and arousable and can tell me she's in the hospital and today can tell me the name. She knows the year and at first said Dec but corrected to November after that. Less fatigued appearing. May have been due to Ativan which is likely out of her system now. Continue infectious mgmt, IV/Po hydration. Monitor BP, maintain normotensive range. Monitor Afib, cards followup, on warfarin. Frequent reorientation, mental status improved, seems at or close to baseline. neurologically stable at this time. discharge planning as per primary
[2018-11-30] MEDS: metoPROLOL SUCCINATE 25 MG TAB.SR.24H (FP) PO SCH (10:43)
[2018-11-30] MEDS: MULTIVITAMINS (DAILY MVI) TABLET (FP) PO SCH (10:43)
[2018-11-30] MEDS: POTASSIUM CHLORIDE TABS 20 MEQ TABLET.ER (FP) PO SCH (10:43)
[2018-11-30] MEDS: OLANZapine 5 MG TABLET PO SCH (10:43)
[2018-11-30] MEDS: APIXABAN 5 MG TABLET PO SCH (10:43)
[2018-11-30] MEDS: SERTRALINE HCL 50 MG TABLET (FP) PO SCH (10:43)
[2018-11-30] MEDS: QUINAPRIL HCL 20 MG TABLET (FP) PO SCH (10:43)
[2018-11-30 11:40] VITALS: BP 140/80; PULSE 78; TEMP 98.4
== END 2018-11-30 11:48 | DRG 689 ==
LOC: JER 01:07 → JERBED 01:47 → J6S 18:16
PROVIDERS: ADMIT Internal Medicine; ATTEND Internal Medicine
DX: N39.0 Urinary tract infection, site not specified (principal); G93.41 Metabolic encephalopathy; I10 Essential (primary) hypertension; I48.91 Unspecified atrial fibrillation; I45.19 Other right bundle-branch block; F03.90 Unspecified dementia, unspecified severity, without behavioral disturbance, psychotic disturbance, mood disturbance, and anxiety; I25.10 Atherosclerotic heart disease of native coronary artery without angina pectoris; R45.1 Restlessness and agitation; G93.89 Other specified disorders of brain; Z86.73 Personal history of transient ischemic attack (TIA), and cerebral infarction without residual deficits; Z86.711 Personal history of pulmonary embolism; Z86.718 Personal history of other venous thrombosis and embolism; Z88.0 Allergy status to penicillin; Z79.01 Long term (current) use of anticoagulants
CPT/HCPCS: 36415; 70450-TC; 71045-TC-FY; 80053; 81003; 82140; 83735; 84443; 84484; 85025; 85610; 87077; 87086; 93005; 93010; 97116-GP; 97161-GP; 99284-25